=== PATIENT | male | born 1955 | race Caucasian/White ===

== ENCOUNTER 2022-09-23 10:13 | Inpatient (IN) | payer OTHER, MEDICARE ==
[~2022-09-23] VITALS: Ht 175 cm; Wt 79.0 kg
--- NOTE | 2022-09-23 11:10 | PM&R Post Admission Assessment ---
PM&R HP Date of Visit: Sep 23, 2022 Time of Visit: 12:15 History of Present Illness CC: Debility post Left pubic fracture & sacral fracture HPI: Patient is a 67 year old male with past medical history of HTN, mitral valve prolapse, and Afib who was recently admitted to [facility] from 09/21- 09/23 after a fall from home on 09/19 caused fractures of his left inferior pubis, left superior ramus, and a left impacted sacral fracture. He had been using meth at the time and fell from a countertop. During his stay at [facility] he was seen by ortho who recommended weight bearing as tolerated and PT/OT. No surgeries were performed. He currently reports 9/10 pain of his left pelvis and sacral regions lying in bed. He reports being comfortable otherwise. Med: Home Meds Active Reported Verapamil Sr (Verapamil HCl) 180 Mg Cap24h.pel 180 Mg PO DAILY Triamterene-Hctz 75-50 mg Tab (Triamterene/Hydrochlorothiazid) 75 Mg-50 Mg Tablet 0.5 Each PO DAILY Ibuprofen 600 Mg Tablet 600 Mg PO Q6H PRN Nicotine Patch (Nicotine) 21 Mg/24 Hour Patch.td24 21 Mg TD DAILY Naloxone HCl 4 Mg/Actuation [place] 1 [place] NS UD PRN ADMINISTER 1 SPRAY IN 1 MOSTRIL 1 TIME, MAY REPEAT IN ALTERNATING NOSTRILS EVERY 2-3 MINUTES UNTIL RESPONSIVE OR EMS ARRIVES Morphine Sulfate IR Tablet (Morphine Sulfate) 15 Mg Tablet 15 Mg PO Q6H PRN MDD 60MG Aspirin 81 Mg Tab.chew 81 Mg PO DAILY All: Iodine contrast media, penicillin, hydrocodone, hydroxyzine, ibuprofen, lisinopril, oxycodone, tramadol PMH: HTN, mitral valve prolapse, afib PSH: orthopedic repairs of left ankle FH: Mother (heart disease) SH:former smoker, current tobaco chewer, occasional alcohol use, Meth use for past 5 months. ROS: (+) Left pubic/hip/sacral pain. (-) LH, dizziness, CP, palpitations, SOB, cough, abd pain, N/V/D, pain in arms or legs. O Temp: 37.2 Pulse: 81 RR: 14 BP 122/75 Pulse Ox: 97 RA General: A/O x 3, No acute distress, fidgety and frequently clamping teeth together HEENT: PERRLA, EOMI Neck: Supple, no thyromegally Lungs: Clear to auscultation bilaterally, no wheezes, rhales, or rhonchi Heart: RRR, no murmurs appreciated on exam Abd: Soft, nontender, nondistended. Normoactive bowel sounds. Extremeties: good motor strength UE and right LE. Decreased strength LLE due to pain Skin: Some bruising in left inguinal region Neuro: Normal speech, no confusion, normal sensation Psych/Mental Status: Normal mood A Fracture of left Superior & inferior pubic ramus Left impacted sacral fracture HTN Hx Mitral valve prolapse Hx afib P PT/OT for rehabilitation Continue home medications Patient reports hx of afib although not in paperwork received. He is in sinus rhythm at this time and only taking aspirin. Monitor for signs of withdrawal DVT proph: lovenox Diet: as tolerated BRENNON CUEVAS Sep 23, 2022 14:54 Past Crmrjbe-Zqofdb-Dbnqpr Hx Past Med/Social Hx: Reviewed Nursing Past Med/Soc Hx, Reviewed and Corrections made Patient Social History Marrital Status: single Employed/Student: retired Alcohol Use: Occasionally Uses Smoking Status: Current Everyday Smoker Past Medical History Cardiac: Atrial Fibrillation, Valvular Heart Disease PM&R Allergy/Meds/Data Review Allergies Coded Allergies: Iodinated Contrast Media (Verified Allergy, Unknown, 09/23/22) Penicillins (Verified Allergy, Unknown, 09/23/22) hydrocodone (Verified Allergy, Unknown, 09/23/22) hydroxyzine (Verified Allergy, Unknown, 09/23/22) ibuprofen (Verified Allergy, Unknown, 09/23/22) lisinopril (Verified Allergy, Unknown, 09/23/22) oxycodone (Verified Allergy, Unknown, 09/23/22) tramadol (Verified Allergy, Unknown, 09/23/22) Home Medications Scheduled Aspirin (Aspirin), 81 MG PO DAILY, (Reported) Nicotine (Nicotine Patch), 21 MG TD DAILY, (Reported) Triamterene/Hydrochlorothiazid (Triamterene-Hctz 75-50 mg Tab), 0.5 EACH PO DAILY, (Reported) Verapamil HCl (Verapamil Sr), 180 MG PO DAILY, (Reported) Scheduled PRN Ibuprofen (Ibuprofen), 600 MG PO Q6H PRN for PAIN-MILD, (Reported) Morphine Sulfate (Morphine Sulfate IR Tablet), 15 MG PO Q6H PRN for PAIN-SEVERE (8-10), (Reported) Naloxone HCl (Naloxone HCl), 1 SPRAY NS UD PRN for OVERDOSE, (Reported) Current Medications Current Medications Reviewed Review of Systems Constitutional: see HPI, malaise, weakness EENTM: no symptoms reported Respiratory: no symptoms reported Cardiovascular: no symptoms reported Gastrointestinal: constipation Genitourinary: no symptoms reported Musculoskeletal: back pain, joint pain, muscle pain, muscle stiffness Skin: no symptoms reported Psychiatric/Neurological: Anxiety, Depressed All Other Systems Reviewed Negative Unless Noted: Yes Physical Exam Physical Exam Vital Signs Capillary Refill : Height, Weight, BMI Height: '" Weight: lbs. oz. kg; BMI Method: General Appearance: No Apparent Distress, WD/WN Eyes: Bilateral Eye Normal Inspection, Bilateral Eye PERRL HEENT: PERRL/EOMI, Normal ENT Inspection, Pharynx Normal Neck: Full Range of Motion, Normal Inspection, Non Tender, Supple, Carotid Bruit Respiratory: Chest Non Tender, Lungs Clear, Normal Breath Sounds, No Accessory Muscle Use, No Respiratory Distress Cardiovascular: Regular Rate, Rhythm, No Edema, No Gallop, No JVD, No Murmur, Normal Peripheral Pulses Gastrointestinal: Normal Bowel Sounds, No Organomegaly, No Pulsatile Mass, Non Tender, Soft Back: Normal Inspection, No CVA Tenderness, Decreased Range of Motion Extremity: Normal Capillary Refill, Normal Inspection, Non Tender, No Calf Tenderness, No Pedal Edema, Other (decreased LE due to pelvic pain) Neurologic/Psychiatric: Alert, Oriented x3, No Motor/Sensory Deficits, Normal Mood/Affect Skin: Normal Color, Warm/Dry Lymphatic: No Adenopathy PM&R Medical Assessment & Plan REHAB/MEDICAL ASSESSMENT AND PLAN: REHAB IMPAIRMENT GROUP: Pelvic fracture: left superior inferior pubic rami and left impacted sacral fracture ETIOLOGIC DIAGNOSIS: Pelvic fracture: left superior inferior pubic rami and left impacted sacral fracture The comorbidities that impact the patients function and/or functional outcome by: meth use, multiple pain med allergies, anxiety REHAB PLAN: The patient is being admitted to our comprehensive inpatient rehabilitation f acility and can tolerate the intensity of service consisting of at least: 180 minutes of therapy a day, 5 out of 7 days a week Rehab treatment will consist of: PT OT will focus on regaining function with use of AD in order to increase ambulatory stamina and improve ADL independence The patient/family has a good understanding of our discharge process and will benefit from an interdisciplinary inpatient rehabilitation program. The patient has potential to make improvement and is in need of at least two of the following multidisciplinary therapies including but not limited to physical, occupational, speech, and prosthetics and orthotics. Additionally the patient will need services from respiratory, nutritional services, wound care, psychology, etc. (Customize this to each patient). Given the patients complex condition and risk of further medical complications, rehabilitation services cannot be safely or effectively provided at a lower level of care such as a half-way facility. BARRIERS TO DISCHARGE: DALE ESTIMATED LOS: 7 days DISPOSITION: Home RELEVANT CHANGES SINCE PREADMISSION SCREENING: I have compared the patients medical and functional status at the time of the preadmission screening and there are: no changes PROGNOSIS: Fair REHABILITATION GOALS: 1. PT OT will focus on regaining function with use of AD in order to increase ambulatory stamina and improve ADL independence All the above goals were reviewed with the patient and he/she is in agreement. By signing this document, I acknowledge that I have personally performed a full physical examination on this patient within 24 hours of admission to this inpatient rehabilitation facility and have determined the patient to be able to tolerate the above course of treatment at an intensive level for a reasonable period of time. I will be completing a detailed individualized Plan of Care for this patient by day #4 of the patients stay based upon the Preadmission Screen, the Post-Admission Evaluation, and the therapy evaluations. Admission Dx/Comorbidities: (1) Pelvic fracture ICD Codes: S32.9XXA - Fracture of unspecified parts of lumbosacral spine and pelvis, initial encounter for closed fracture Assessment/Plan Assessment and Plan Assess & Plan/Chief Complaint Assessment: Fracture of left Superior & inferior pubic ramus Left impacted sacral fracture HTN Hx Mitral valve prolapse Hx afib Multiple pain med allergies Constipation Plan: Pain control PT OT Home meds Constipation treatment TYREL FREIRE DO Sep 23, 2022 11:10
[2022-09-23] MEDS ORDERED: FLEET ENEMA ADULT 1 EA BTL PR PRN (11:15)
[2022-09-23] MEDS ORDERED: guaiFENesin/CODEINE (ROBITUSSIN AC) 10ML UDC PO PRN (11:15)
[2022-09-23] MEDS ORDERED: diphenhydrAMINE 25 MG TAB (BENADRYL) PO PRN (11:15)
[2022-09-23] MEDS ORDERED: MELATONIN 3 MG TABLET PO PRN (11:15)
[2022-09-23] MEDS ORDERED: BISACODYL 10 MG SUPP (DULCOLAX) PR PRN (11:15)
[2022-09-23] MEDS ORDERED: DOCUSATE SODIUM 100 MG (COLACE) CAP PO PRN (11:15)
[2022-09-23] MEDS ORDERED: ONDANSETRON 4 MG (ZOFRAN) ORAL DISSOLVE TAB PO PRN (11:15)
[2022-09-23] MEDS ORDERED: LOPERAMIDE 2 MG (IMODIUM) TABLET PO PRN (11:15)
[2022-09-23] MEDS ORDERED: CALCIUM CARBONATE 500 MG (TUMS) TAB.CHEW PO PRN (11:15)
[2022-09-23] MEDS ORDERED: MORP15TA PO (12:18)
[2022-09-23] MEDS ORDERED: NALO4SPR3 NS (12:18)
[2022-09-23] MEDS ORDERED: ASPI-999 PO (12:18)
[2022-09-23] MEDS ORDERED: VERA180C4 PO (12:18)
[2022-09-23] MEDS ORDERED: TRIA1TAB5 PO (12:18)
[2022-09-23] MEDS ORDERED: NICO-685 TD (12:18)
[2022-09-23] MEDS ORDERED: IBUP-1773 PO (12:18)
--- NOTE | 2022-09-23 12:53 | Occupational Therapy Eval ---
OT Evaluation-General/PLF Medical Diagnosis Admission Date Sep 23, 2022 at 11:55 Medical Diagnosis: pelvis and sacral fx Onset Date: Sep 19, 2022 Therapy Diagnosis Therapy Diagnosis: decreased ADL status, pain Weight Bear Status Weight Bearing Restriction: Weight Bearing/Tolerated Location Restriction: LE Bilateral Referral Physician: Arslan Quiroz Reason: Evaluation/Treatment Medical History Additional Medical History HTN, mitral valve prolapse, afib, illicit drug use (meth), L ankle surgery x3 Current History fall 09/19 after climbing on countertop. ED 09/21 due to continued pain. L superior and inferior pubic rami and sacral fractures. Pt transferred to ARU 09/23/22 Social History Home: Apartment (2nd floor apartment) Current Living Status: Alone Steps Into Home: 6 (without rail) Steps Inside Home: 11 (with rail) Pt reports 6 steps into apartment complex initially. Once inside he has 2 more flights to get to his apartment (1 small flight and a regular flight). ADL-Prior Level of Function SCALE: Activities may be completed with or without assistive devices. 4-Wowmzlnexs-tqfkiwi completes the activity by him/herself with no assistance from a helper. 5-Set-up or Clean-up Assistance-helper sets up or cleans up; patient completes activity. [place] assists only prior to or following the activity. 4-Supervision or Touching Assistance-helper provides verbal cues and/or touching/steadying and/or contact guard assistance as patient completes activity. Assistance may be provided throughout the activity or intermittently. 3-Partial/Moderate Assistance-helper does LESS THAN HALF the effort. [place] lifts, holds or supports trunk or limbs, but provides less than half the effort. 2-Substantial/Maximal Assistance-helper does MORE THAN HALF the effort. [place] lifts or holds trunk or limbs and provides more than half the effort. 0-Eugyusqqv-bvyyqj does ALL the effort. Patient does none of the effort to complete the activity. Or, the assistance of 2 or more helpers is required for the patient to complete the activity. If activity was not attempted, code reason: 7-Patient Refused. 9-Not Applicable-not attempted and the patient did not perform the activity before the current illness, exacerbation or injury. 10-Not Attempted due to Environmental Limitations-(lack of equipment, weather restraints, etc.). 88-Not Attempted due to Medical Conditions or Safety Concerns. ADL PLOF Comments Uses a plastic lawn chair as a walker within his home since his fall. He did not use any AD prior to fall. His mattress is on the floor, no bed stand. Pt was independent with I/ADLs prior to fall. He was not driving, he used transportation or walked where he needed. Self Care: Independent Functional Cognition: Independent DME/Equipment: Tub/Shower Drive Self: No OT Current Status Subjective L shoulder pain 7-8/10 with use, 8/10 pelvis at rest and 10+/10 with mo vement/activity. Mental Status/Objective Patient Orientation: Person, Place, Time, Situation Current Glasses/Contacts: No Hand Dominance: Left Upper Extremity ROM Decreased LUE shoulder flexion (prior rotator cuff injury). WFL at elbow/wrist/hand RUE WFL. Upper Extremity Coordination WFL Upper Extremity Sensation WFL Upper Extremity Strength RUE grossly 4/5, LUE grossly 3/5 ADL-Treatment Eating (QC): 6 Oral Hygiene (QC): 4 (SBA standing at sink.) Shower/Bathe Self (QC): 4 (CGA) Upper Body Dressing (QC): 5 Lower Body Dressing (QC): 4 (CGA) On/Off Footwear (QC): 4 (SBA) Toileting Hygiene (QC): 4 (CGA) Other Treatments OT evaluation complete. Pt's lunch arrived, pt able to eat independently, c/o pain in L shoulder occasionally with movement. OT/PT cotreat due to skill of 2 clinicians required which a coordinator of rehabilitation services could not perform in order to coordinate UE/LEs, decrease fall risk, and due to pt's limitations in strength, transfers/mobility, and pain with activity. OT focused on UE placement, cues for sequencing and safety, and ADLS, PT focused on LE placement, gross overall movement, transfers and mobility. Pt transferred supine to sit EOB, donned footwear with close SBA. Pt stood at sink for oral care, SBA. Pt declined other ADLS at this time, as he had completed at OSH prior to admission [facility]. QC scores based on pt's report and performance during therapy session. Pt used FWW to perform functional mobility/transfers including car transfers, mobility using FWW (even and uneven surface), bed mobility, stairs, and balance assessments. Pt took rest breaks as needed. Please refer to PT evaluation for QC scores associated with mobility/transfers, and for scores associated with balance assessments. Pt returned to room, transferring to bed. Pt positioned to comfort on R side using pillow between knees and behind his back. Post tx, pt in bed, call light in reach and all needs met. Education OT Patient Education: Correct positioning, Energy conservation, Modified ADL techniques, Progress toward Goal/Update tx plan, Purpose of tx/functional activities, Rehab process Teaching Recipient: Patient Teaching Methods: Discussion Response to Teaching: Verbalize Understanding BIMS CAM BIMS Expression of Ideas and Wants: Without Difficulty Understanding Verbal Content: Understands Brief Interview/Mental Status: Yes IRF [place] BIMS: IRF [place] BIMS Response (Comments) Value Repitition of Three Words Three 3 Recalls Socks Yes, No Cue Required 2 Recalls Blue Yes, No Cue Required 2 Recalls Bed No, Could Not Recall 0 Year Correct 3 Month Accurate Within 5 Days 2 Day Correct 1 Total 13 Should Staff Asses. Mental St.: No CAM Mental Status Change/Baseline: 0 Inattention: 0 Disorganized thinkin Altered level of consciousness: 0 OT Short Term Goals Short Term Goals Time Frame: Oct 01, 2022 Shower/bathe self: 5 Upper body dressin Lower body dressin Putting on/taking off footwear: 5 OT Skilled Nursing Goals Handle Lathe Operator Goals Time Frame: Oct 15, 2022 Eating (QC): 6 Oral Hygiene (QC): 6 Toileting Hygiene (QC): 6 Shower/Bathe Self (QC): 6 Upper Body Dressing (QC): 6 Lower Body Dressing (QC): 6 On/Off Footwear (QC): 6 Additional Goals: 1-Demonstrate ADL Tasks, 2-Verbalize Understanding, 3- ImproveStrength/Sivan 1=Demonstrate adherence to instructed precautions during ADL tasks. 2=Patient will verbalize/demonstrate understanding of assistive devices/modifications for ADL. 3=Patient will improve strength/tolerance for activity to enable patient to perform ADL's. OT Education/Plan Problem List/Assessment Assessment: Decreased Activ Tolerance, Decreased UE Strength, Impaired Funct Balance, Impaired I ADL's, Impaired Self-Care Skills Discharge Recommendations Plan/Recommendations: Continue POC Treatment Plan/Plan of Care Patient would benefit from OT for education, treatment and training to promote independence in ADL's, mobility, safety and/or upper extremity function for ADL's. Plan of Care: ADL Retraining, Functional Mobility, Group Exercise/Act as Ind, UE Funct Exercise/Act Treatment Duration: Oct 15, 2022 Frequency: At least 5 of 7 days/Wk (IRF) Estimated Hrs Per Day: 1.5 hours per day Agreement: Yes Rehab Potential: Good Time Start Time: 12:40 Stop Time: 14:20 DATE: Sep 23, 2022 Total Time Billed (hr/min): 90 Billed Treatment Time [id number] OT eval/tx (28'), [id number] Cotreat (62') 1, EVM (10'), ADL 2 (30'), FA 3 (50') HERMINIO DE JESUS OT Sep 23, 2022 12:53
[2022-09-23] MEDS ORDERED: LACTULOSE SYRUP 10GM/15ML (ENULOSE) 30ML UDC PO NR (13:30)
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
[2022-09-23 14:19] VITALS: BP 122/75
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
[2022-09-23] MEDS: morphine IMMEDIATE RELEASE 15 MG TABLET PO PRN (16:10)
--- NOTE | 2022-09-23 16:23 | Physical Therapy Daily Note ---
PT Daily Note-Current Subjective Patient rating pain in (L) groin as 10/10+. Is angry and agitated that he is still hurting - is not physically aggressive, but exceptionally agitated. Reminded patient that he denied needing pain medication at admission and advised patient that we can ask nursing for pain medications to help control pain. He states he is hesitant due to no BM. Discussed that patient's 10+/10 pain will not allow for good participation in therapy. Suggest trial of IFC/TENS at low back/sacrum to see if it provides any pain relief. Patient agreeable to try IFC. Did calm down and was not agitated at the end of the session. Pain Section J - Health Conditions 1. Rarely or not at all 2. Occasionally 3. Frequently 4. Almost constantly 8. Unable to answer Pain Effect on Sleep: 3 (has to be in partial (R) sidelying or on back to sleep) Pain Interference with Therapy: 4 Pain Interference w/Day-to-Day: 4 Transfers SCALE: Activities may be completed with or without assistive devices. 6-Pfrwtnojiz-kfozveq completes the activity by him/herself with no assistance from a helper. 5-Set-up or Clean-up Assistance-helper sets up or cleans up; patient completes activity. [place] assists only prior to or following the activity. 4-Supervision or Touching Assistance-helper provides verbal cues and/or touching/steadying and/or contact guard assistance as patient completes activity. Assistance may be provided throughout the activity or intermittently. 3-Partial/Moderate Assistance-helper does LESS THAN HALF the effort. [place] lifts, holds or supports trunk or limbs, but provides less than half the effort. 2-Substantial/Maximal Assistance-helper does MORE THAN HALF the effort. [place] lifts or holds trunk or limbs and provides more than half the effort. 5-Wcvktbcik-hjtszr does ALL the effort. Patient does none of the effort to complete the activity. Or, the assistance of 2 or more helpers is required for the patient to complete the activity. If activity was not attempted, code reason: 7-Patient Refused. 9-Not Applicable-not attempted and the patient did not perform the activity before the current illness, exacerbation or injury. 10-Not Attempted due to Environmental Limitations-(lack of equipment, weather restraints, etc.). 88-Not Attempted due to Medical Conditions or Safety Concerns. Lying to Sitting/Side of Bed(Q: 3 (Min (A) but yelled out in pain. Stated "I don't care who hears". Explained to patient that we do not want him to hurt and suggested medication for pain management, as his last dose was over 5 hours ago.) Sit to Stand (QC): 4 (CGA sit<>stand following TENS placement) Weight Bearing Weight Bearing/Tolerated Weight Bearing/Tolerated Gait Training Distance: Kya ambulated 150' with FWW with TENS in place, CGA, improved steps Treatments IFC-estim (quadripolar placement) surround low back/sacrum. level 4 (to patient tolerance). Patient stated it felt like a massage. Assessment Current Status: Fair Progress No pain increase with TENS. Explained that TENS will be removed at conclusion of this session. Will reapply for tomorrow's treatment to provide pain relief with therapy tasks. With patient's impulsivity/anger issues when hurting, do not believe it is safe to leave IFC in with patient unattended. PT Residential Goals Sales And Business Development Manager Goals PT Sales And Business Development Manager Goals Time Frame: Oct 14, 2022 Roll Left & Right (QC): 6 Sit to Lying (QC): 6 Lying-Sitting on Side/Bed(QC): 6 Sit to Stand (QC): 6 Chair/Jrc-ih-Cfhek Xfer(QC): 6 (with FWW) Toilet Transfer (QC): 6 Car Transfer (QC): 5 Does the Patient Walk: Yes Walk 10 feet (QC): 6 (with FWW) Walk 50ft with 2 Turns (QC): 6 (with FWW) Walk 150 ft (QC): 6 (with FWW) Walking 10ft on Uneven Surface: 6 (with FWW) 1 Step (curb) (QC): 6 (with FWW) 4 Steps (QC): 6 (with (B) rails) 12 Steps (QC): 5 (with (B) rails) Picking up an Object (QC): 6 (with c4 planner) Does the Pt use WC or Scooter?: No Wheel 50 feet with 2 turns (QC: 9 Type: N/A Wheel 150 feet: 9 Type: N/A PT Plan Treatment/Plan Treatment Plan: Continue Plan of Care Treatment Plan: Bed Mobility, Education, Functional Activity Sivan, Functional Strength, Group Therapy, Gait, Safety, Therapeutic Exercise, Transfers, Other (IFC/TENS prn) Treatment Duration: Oct 14, 2022 Frequency: At least 5 of 7 days/Wk (IRF) Estimated Hrs Per Day: 1.5 hours per day Patient and/or Family Agrees t: Yes Time Time In: 1545 Time Out: 1614 DATE: Sep 23, 2022 Total Billed Treatment Time: 29 Total Billed Treatment 29' on individual therapy, ES 14, Gait 15' Silvina Marcano PT Sep 23, 2022 16:23
[2022-09-23] MEDS ORDERED: VERAPAMIL SR 180 MG (CALAN SR) TAB PO SCH (18:00)
[2022-09-23] MEDS: VERAPAMIL SR 180 MG (CALAN SR) TAB PO SCH (18:24)
[2022-09-23] MEDS: ENOXAPARIN 40 MG/0.4 ML (LOVENOX) SYR SC SCH (18:43)
[2022-09-23 19:47] VITALS: BP 124/74
[2022-09-23] MEDS: SENNA W/DOCUSATE (SENOKOT S) TABLET PO SCH (20:13)
[2022-09-23] MEDS: morphine ER 30 MG (MS CONTIN) TAB PO SCH (20:13)
[2022-09-23] MEDS ORDERED: diphenhydrAMINE 25 MG TAB (BENADRYL) PO ONE (20:13)
[2022-09-23] MEDS: DOCUSATE SODIUM 100 MG (COLACE) CAP PO SCH (20:14)
[2022-09-23] MEDS ORDERED: NICOTINE 21 MG (NICODERM) PATCH ONE (20:15)
[2022-09-23] MEDS: polyethylene glycoL POWDER 17 GM (MIRALAX) PACK PO SCH (20:17)
[2022-09-23] MEDS: NICOTINE 21 MG (NICODERM) PATCH TD SCH (20:19)
[2022-09-24 06:02] LABS: BASOPHILS # (AUTO) 0.1 10^3/uL (0.0-0.1); BASOPHILS % (AUTO) 1 % (0-10); EOSINOPHILS # (AUTO) 0.4 10^3/uL (0.0-0.3); EOSINOPHILS % (AUTO) 7 % (0-10); HEMATOCRIT 35 % (40-54); HEMOGLOBIN 11.8 g/dL (13.3-17.7); LYMPHOCYTES % (AUTO) 37 % (12-44); MEAN CORPUSCULAR HEMOGLOBIN 32 pg (25-34); MEAN CORPUSCULAR HGB CONC 34 g/dL (32-36); MEAN CORPUSCULAR VOLUME 95 fL (80-99); MEAN PLATELET VOLUME 8.9 fL (9.0-12.2); MONOCYTES # (AUTO) 0.6 10^3/uL (0.0-1.0); MONOCYTES % (AUTO) 11 % (0-12); NEUTROPHILS # (AUTO) 2.4 10^3/uL (1.8-7.8); NEUTROPHILS % (AUTO) 45 % (42-75); PLATELET COUNT 244 10^3/uL (130-400); WHITE BLOOD COUNT 5.4 10^3/uL (4.3-11.0)
[2022-09-24 06:18] LABS: ALBUMIN 3.1 GM/DL (3.2-4.5); BILIRUBIN,TOTAL 0.6 MG/DL (0.1-1.0); CALCIUM 8.6 MG/DL (8.5-10.1); CREATININE SERUM 0.77 MG/DL (0.60-1.30); POTASSIUM 3.9 MMOL/L (3.6-5.0); TOTAL PROTEIN 5.8 GM/DL (6.4-8.2)
[2022-09-24] MEDS ORDERED: VERAPAMIL SR 180 MG (CALAN SR) TAB PO SCH (07:00)
[2022-09-24] MEDS: VERAPAMIL SR 180 MG (CALAN SR) TAB PO SCH ×2 (07:36→17:57)
[2022-09-24] MEDS: ASPIRIN 81 MG CHEW (CHILDREN'S ASA) PO SCH (07:36)
[2022-09-24] MEDS: morphine ER 30 MG (MS CONTIN) TAB PO SCH ×2 (07:37→20:41)
[2022-09-24] MEDS: SENNA W/DOCUSATE (SENOKOT S) TABLET PO SCH ×2 (07:38→20:50)
[2022-09-24] MEDS: DOCUSATE SODIUM 100 MG (COLACE) CAP PO SCH ×2 (07:38→20:50)
[2022-09-24] MEDS: NICOTINE 21 MG (NICODERM) PATCH TD SCH (07:41)
[2022-09-24 07:57] VITALS: BP 122/64
[2022-09-24] MEDS: LACTULOSE SYRUP 10GM/15ML (ENULOSE) 30ML UDC PO PRN (08:06)
--- NOTE | 2022-09-24 08:11 | PM&R Progress Note ---
Subjective HPI/CC On Admission Date Seen by Provider: Sep 24, 2022 Time Seen by Provider: 11:30 Subjective/Events-last exam 09/24/2022: Much improved Pain improved Asked about Dilaudid and I explained that is only for post op pain and MS Pop was added to help him with his pain No issues Review of Systems General: Fatigue, Malaise Objective Exam Vital Signs Vital Signs Date Time Temp Pulse Resp B/P (MAP) Pulse Ox O2 Delivery O2 Flow Rate FiO2 09/24/22 20:30 100 Room Air 09/24/22 19:48 36.5 63 16 124/77 (93) Capillary Refill : General Appearance: No Apparent Distress, WD/WN HEENT: PERRL/EOMI, Normal ENT Inspection, Pharynx Normal Neck: Full Range of Motion, Normal Inspection, Non Tender, Supple, Carotid Bruit Respiratory: Chest Non Tender, Lungs Clear, Normal Breath Sounds, No Accessory Muscle Use, No Respiratory Distress Cardiovascular: Regular Rate, Rhythm, No Edema, No Gallop, No JVD, No Murmur, Normal Peripheral Pulses Gastrointestinal: Normal Bowel Sounds, No Organomegaly, No Pulsatile Mass, Non Tender, Soft Back: Normal Inspection, No CVA Tenderness, Decreased Range of Motion Extremity: Normal Capillary Refill, Normal Inspection, Non Tender, No Calf Tenderness, No Pedal Edema, Other (decreased LE due to pelvic pain) Neurologic/Psychiatric: Alert, Oriented x3, No Motor/Sensory Deficits, Normal Mood/Affect Skin: Normal Color, Warm/Dry Lymphatic: No Adenopathy Results/Procedures Lab Patient resulted labs reviewed. FIM Transfers Therapy Code Descriptions/Definitions Functional [place] Measure: 0=Not Assessed/NA 4=Minimal Assistance 1=Total Assistance 5=Supervision or Setup 2=Maximal Assistance 6=Modified [place] 3=Moderate Assistance 7=Complete IndependenceSCALE: Activities may be completed with or without assistive devices. 2-Bmmrrvvqim-hzolgzb completes the activity by him/herself with no assistance from a helper. 5-Set-up or Clean-up Assistance-helper sets up or cleans up; patient completes activity. [place] assists only prior to or following the activity. 4-Supervision or Touching Assistance-helper provides verbal cues and/or touchi ng/steadying and/or contact guard assistance as patient completes activity. Assistance may be provided throughout the activity or intermittently. 3-Partial/Moderate Assistance-helper does LESS THAN HALF the effort. [place] lifts, holds or supports trunk or limbs, but provides less than half the effort. 2-Substantial/Maximal Assistance-helper does MORE THAN HALF the effort. [place] lifts or holds trunk or limbs and provides more than half the effort. 3-Mfgcozwnl-cujpyu does ALL the effort. Patient does none of the effort to complete the activity. Or, the assistance of 2 or more helpers is required for the patient to complete the activity. If activity was not attempted, code reason: 7-Patient Refused. 9-Not Applicable-not attempted and the patient did not perform the activity before the current illness, exacerbation or injury. 10-Not Attempted due to Environmental Limitations-(lack of equipment, weather restraints, etc.). 88-Not Attempted due to Medical Conditions or Safety Concerns. Roll Left to Right (QC): 4 (set-up and cues for bedrail due to pain) Sit to Lying (QC): 3 (min (A) with LE's due to pain) Sit to Stand (QC): 4 (CGA sit<>stand following TENS placement) Chair/Pps-wt-Qvirk Xfer(QC): 3 (Min-CGA with FWW) Car Transfer (QC): 3 (Min (A) to lift LE's into car- painful transition.) Gait Training Does the Patient Walk?: Yes Distance: Kya ambulated 150' with FWW with TENS in place, CGA, improved steps Walk 10 feet (QC): 3 (min (A) with FWW) Walk 50 ft with 2 Turns(QC): 3 (min (A) with FWW) Walk 150 ft (QC): 3 (min (A) with FWW) Walking 10ft/uneven surface-QC: 3 (min (A) with FWW and cues for walker placement) Gait Assistive Device: FWW Wheelchair Training Does the Pt Use a Wheelchair?: No Wheel 50 ft with 2 turns (QC): 9 Wheel 150 ft (QC): 9 Stair Training 1 Step (curb) (QC): 3 (min (A) with FWW) 4 Steps (QC): 3 (min (A) (B) rails with max cues for stepping sequence, step to pattern. Increased pain with this activity.) 12 Steps (QC): 88 (not safe due to increased pain with 4 steps) Balance Picking up an Object (QC): 6 (with tree warden. Unableto pick pen up floor without tree warden - reaching down/forward caused increased pelvis pain.) ADL-Treatment Eating (QC): 6 Oral Hygiene (QC): 4 (SBA standing at sink.) Shower/Bathe Self (QC): 4 (CGA) Upper Body Dressing (QC): 5 Lower Body Dressing (QC): 4 (CGA) On/Off Footwear (QC): 4 (SBA) Toileting Hygiene (QC): 4 (CGA) Assessment/Plan Assessment and Plan Assess & Plan/Chief Complaint Assessment: Fracture of left Superior & inferior pubic ramus Left impacted sacral fracture HTN Hx Mitral valve prolapse Hx afib Multiple pain med allergies Constipation Plan: Pain control PT OT Home meds Constipation treatment 09/24/2022: BM+ Pain control (1) Pelvic fracture TYREL FREIRE DO Sep 24, 2022 08:11
--- NOTE | 2022-09-24 08:11 | Individualized Plan of Care ---
Individualized Plan of Care Rehab Nursing IPOC Order Admission Date Sep 23, 2022 at 11:55 Current Orders Orders Admission Order(Inpt,Obs,Sdc) (09/23/22 11:06) Vital Signs: Per Unit Policy ( 08,16,00 (09/23/22 11:06) Franky Kessler 09,21 (09/23/22 11:06) Sequential Compression Device (09/23/22 11:06) Assembly Manager-Inpt Rehab Con (09/23/22 11:06) Rehab Nursing Orders-Ipoc (09/23/22 11:06) Physical Therapy Rehab Orders (09/23/22 11:06) Occupational Therapy Rehab Ord (09/23/22 11:06) Speech Therapy Rehab Orders (09/23/22 11:06) Cbc With Automated Diff (09/24/22 06:00) Comprehensive Metabolic Panel (09/24/22 06:00) Precautions (Aru) (09/23/22 11:06) Weekly Weight WEEK (09/23/22 11:06) Rehab-Intensity Of Therapy (09/23/22 11:06) Initiate Admission Nursing Pro .admission (09/23/22 11:06) Alprazolam Tablet (Xanax Tablet) (09/23/22 11:15) Calcium Carbonate Chew Tablet (Antacid C (09/23/22 11:15) Diphenhydramine Tablet (Benadryl Tablet) (09/23/22 11:15) Docusate Sodium Capsule (Colace Capsule) (09/23/22 21:00) Docusate Sodium Capsule (Colace Capsule) (09/23/22 11:15) Bisacodyl Suppository (Dulcolax Supposit (09/23/22 11:15) Lactulose Oral Solution (Enulose Oral So (09/23/22 11:15) Na Phos/Na Biphos Enema (Fleet Enema Zafar (09/23/22 11:15) Guaifenesin/Codeine Syrup (Robitussin Ac (09/23/22 11:15) Loperamide Tablet (Imodium Tablet) (09/23/22 11:15) Melatonin Tablet (Melatonin Tablet) (09/23/22 11:15) Polyethylene Glycol Powder Pkt (Miralax (09/23/22 21:00) Ondansetron Oral Dissolve Tab (Zofran (09/23/22 11:15) Senna S Tablet (Senokot S Tablet) (09/23/22 21:00) Acetaminophen Tablet/Caplet (Tylenol T (09/23/22 11:15) Initiate Admission Nursing Pro .admission (09/23/22 11:06) Admission Arrival Bed Request (09/23/22 11:55) General/Regular (09/23/22 Lunch) Aspirin Chewable Tablet (Baby Aspirin Ch (09/24/22 09:00) Morphine Immediate Release Tab (Morphine (09/23/22 12:45) Nicotine Patch (Nicoderm Patch) (09/24/22 09:00) Triamterene/Hctz 75-50 Tablet (Maxzide 7 (09/24/22 09:00) (Nf) Verapamil Hcl (Verapamil Sr) (09/24/22 09:00) Lactulose Oral Solution (Enulose Oral So (09/23/22 13:30) Morphine Er Tablet (Ms Contin Tablet) (09/23/22 21:00) Patch Removal (Patch Removal) (09/24/22 08:59) Verapamil Sr Tablet (Isoptin Sr Tablet) (09/24/22 07:00) Verapamil Sr Tablet (Isoptin Sr Tablet) (09/23/22 18:00) Enoxaparin Injection (Lovenox Injection) (09/23/22 18:00) Verapamil Sr Tablet (Isoptin Sr Tablet) (09/23/22 18:30) Diphenhydramine Tablet (Benadryl Tablet) (09/23/22 20:13) Nicotine Patch (Nicoderm Patch) (09/23/22 20:15) Patient Visit (09/23/22 ) Pt Eval Moderate Complexity (09/23/22 ) Gait Training, Ea 15 Min (09/23/22 ) Functional Activities, Ea 15 (09/23/22 ) E-Stim, Unattended Tx (09/23/22 ) Diphenhydramine Tablet (Benadryl Tablet) (09/24/22 08:15) Diphenhydramine Tablet (Benadryl Tablet) (09/24/22 08:46) Patient Visit (09/24/22 ) E-Stim, Unattended Tx (09/24/22 ) Gait Training, Ea 15 Min (09/24/22 ) Exercise Therap, Ea 15 Min (09/24/22 ) Rehab Nursing Orders: Ongoing Assess. of Function Status, Bladder Management, Bladder Scan, Bladder Training, Bowel Management, Bowel Training, Disease Management & Educaiton, DVT Prophylaxis, Fall Prevention, Fluid/Electrolyte/Nutrition Mgmt, Infection Prevention, Medication Management & Education, Management of Risks & Complications, Management of Skin Intergrity, Nutrition Management, Pain Management, Patient/Family Support, Safety Management Intensity of Therapy to be met Patient to be seen: Min.3h per day/5 of 7d PT IPOC Problem List: Activity Tolerance, Functional Strength, Safety, Balance, Gait, Transfer, Bed Mobility, Other (Pain) Treatment Plan: Continue Plan of Care Bed Mobility, Education, Functional Activity Sivan, Functional Strength, Group Therapy, Gait, Safety, Therapeutic Exercise, Transfers, Other (IFC/TENS prn) Treatment Duration: Oct 14, 2022 Frequency: At least 5 of 7 days/Wk (IRF) Estimated Hrs Per Day: 1.5 hours per day OT IPOC Problems: Decreased Activ Tolerance, Decreased UE Strength, Impaired Funct Balance, Impaired I ADL's, Impaired Self-Care Skills OT Treatment, Training and Edu: Yes Plan of Care: ADL Retraining, Functional Mobility, Group Exercise/Act as Ind, UE Funct Exercise/Act Treatment Duration: Oct 15, 2022 Frequency: At least 5 of 7 days/Wk (IRF) Estimated Hrs Per Day: 1.[address] IPOC Speech Therapy Treatment Plan: Discontinue ST Treatment Duration: Sep 24, 2022 Frequency: Modified Program (IRF) Estimated Hrs Per Day: Other Assembly Manager/Case Mgmt Assembly Manager/Case Managemen: Discharge Planning Dietitian/Personalized Living Manager Dietitian/Personalized Living Manager to monitor nutritional status and make changes and/or recommendations as needed and work with speech pathology on dietary upgrades as the occur. Physician IPOC Medical Issues being managed closely and that require the 24 hour availability of a physician: Recent pelvic fracture with use of meth and valvular heart disease will require close monitoring for decompensation Medical Issues: Bowel/Bladder Function, DVT Prophylaxis, Falls Precautions, Fluid/Electrolyte/Nutrition Balance, Infection Protection, Pain Management Brief Synthesis of Preadmission Screen, Post-Admission Evaluation, and Therapy Evaluations: PT OT will focus on regaining function with use of AD in order to gain stamina and ambulation skills in order to return home Medical Prognosis: Fair Anticipated Length of Stay: 7 days TYREL FREIRE DO Sep 24, 2022 08:11
[2022-09-24] MEDS ORDERED: diphenhydrAMINE 25 MG TAB (BENADRYL) PO ONE (08:46)
[2022-09-24] MEDS: diphenhydrAMINE 25 MG TAB (BENADRYL) PO PRN ×4 (08:48→20:41)
[2022-09-24] MEDS: NICOTINE PATCH REMOVAL TP SCH (08:51)
[2022-09-24] MEDS: polyethylene glycoL POWDER 17 GM (MIRALAX) PACK PO SCH ×3 (08:53→20:41)
[2022-09-24] MEDS ORDERED: TRIAMTERENE/HCTZ 75-50 (MAXZIDE,DYAZIDE) TABLET PO SCH (09:00)
[2022-09-24] MEDS ORDERED: VERAPAMIL HCL 180 MG PO SCH (09:00)
--- NOTE | 2022-09-24 09:54 | Speech Therapy Progress Note ---
Therapy Progress Note ST received a consultation for cognitive linguistic services. At this time, a skilled speech pathology need has not been identified through documentation or discussion. If speech pathology services are needed, please re-consult. Thank you for the consultation. KAVEH STALEY Sep 24, 2022 09:54
[2022-09-24] MEDS: ALPRAZolam 0.25 MG (XANAX) TAB PO PRN ×2 (09:58→20:41)
--- NOTE | 2022-09-24 11:02 | Occupational Ther Daily Note ---
OT Current Status-Daily Note Subjective Pt seen in room, up in bed, agreeable to OT. Pt reported discomfort in pelvis during supine to sit but did not rate pain. Complained only about itching and nursing was contacted. Appearance Alert, cooperative. Somewhat loud initially but quieted with time. ADL-Treatment Pt declined shower, stating that he had one yesterday before he was admitted and only showers every other day. Supine to sit EOB without assistance but uncomfortable for pt. Sit to stand with SBA, with bed elevated. Walked CGA, FWW to bathroom and stood SBA at sink to brush teeth. Declined toileting. Therapy Code Descriptions/Definitions Functional [place] Measure: 0=Not Assessed/NA 4=Minimal Assistance 1=Total Assistance 5=Supervision or Setup 2=Maximal Assistance 6=Modified [place] 3=Moderate Assistance 7=Complete IndependenceSCALE: Activities may be completed with or without assistive devices. 3-Hlcdkkfows-gfczcjx completes the activity by him/herself with no assistance from a helper. 5-Set-up or Clean-up Assistance-helper sets up or cleans up; patient completes activity. [place] assists only prior to or following the activity. 4-Supervision or Touching Assistance-helper provides verbal cues and/or touching/steadying and/or contact guard assistance as patient completes activity. Assistance may be provided throughout the activity or intermittently. 3-Partial/Moderate Assistance-helper does LESS THAN HALF the effort. [place] lifts, holds or supports trunk or limbs, but provides less than half the effort. 2-Substantial/Maximal Assistance-helper does MORE THAN HALF the effort. [place] lifts or holds trunk or limbs and provides more than half the effort. 1-Yfglsduzg-fsuaxb does ALL the effort. Patient does none of the effort to complete the activity. Or, the assistance of 2 or more helpers is required for the patient to complete the activity. If activity was not attempted, code reason: 7-Patient Refused. 9-Not Applicable-not attempted and the patient did not perform the activity before the current illness, exacerbation or injury. 10-Not Attempted due to Environmental Limitations-(lack of equipment, weather restraints, etc.). 88-Not Attempted due to Medical Conditions or Safety Concerns. Oral Hygiene (QC): 4 (SBA) Other Treatment Pt walked to therapy gym. Cues for hand placement for stand to sit in chair with arms. Pt completed 10 minutes bilat UE exercise on arm bike set at 15W resistance. To strengthen arms to help with transfers. He took many brief breaks and extra time. He reported that his L shoulder hurt with certain movements such as reaching but that it did not hurt while using the arm bike. Cues for hand placement for sit to stand and education on why to use UEs to assist with transfers. Walked CGA, FWW back to room and cues for and placement to sit EOB. Some discomfort getting legs into bed but he was able to do it without help. Pt left up in bed, 3 rails up, bed alarm on, all needs met. Education OT Patient Education: Progress toward Goal/Update tx plan, Purpose of tx/functional activities, Safety issues, Transfer techniques Teaching Recipient: Patient Teaching Methods: Demonstration, Discussion Response to Teaching: Verbalize Understanding, Reinforcement Needed OT Short Term Goals Short Term Goals Time Frame: Oct 01, 2022 Shower/bathe self: 5 Upper body dressin Lower body dressin Putting on/taking off footwear: 5 OT Senior Care Goals Senior Care Goals Time Frame: Oct 15, 2022 Acute change in mental status: 0 Inattention: 0 Disorganized thinkin Altered level of consciousness: 0 Eating (QC): 6 Oral Hygiene (QC): 6 Toileting Hygiene (QC): 6 Shower/Bathe Self (QC): 6 Upper Body Dressing (QC): 6 Lower Body Dressing (QC): 6 On/Off Footwear (QC): 6 Additional Goals: 1-Demonstrate ADL Tasks, 2-Verbalize Understanding, 3-ImproveStrength/Sivan 1=Demonstrate adherence to instructed precautions during ADL tasks. 2=Patient will verbalize/demonstrate understanding of assistive devices/modifications for ADL. 3=Patient will improve strength/tolerance for activity to enable patient to perform ADL's. OT Education/Plan Discharge Recommendations Plan/Recommendations: Continue POC Treatment Plan/Plan of Care Patient would benefit from OT for education, treatment and training to promote independence in ADL's, mobility, safety and/or upper extremity function for ADL's. Plan of Care: ADL Retraining, Functional Mobility, Group Exercise/Act as Ind, UE Funct Exercise/Act Treatment Duration: Oct 15, 2022 Frequency: At least 5 of 7 days/Wk (IRF) Estimated Hrs Per Day: 1.5 hours per day Agreement: Yes Rehab Potential: Good Time Start Time: 08:30 Stop Time: 09:30 DATE: Sep 24, 2022 Total Time Billed (hr/min): 60 Billed Treatment Time visit, ADL 10 minutes, exercise 50 minutes LUCRETIA VARELA OT Sep 24, 2022 11:02
[2022-09-24] MEDS: ACETAMINOPHEN 325 MG TABLET PO PRN (13:05)
--- NOTE | 2022-09-24 13:42 | Physical Therapy Daily Note ---
PT Daily Note-Current Subjective Pt found lying in bed upon entry. Agreed to PT. Rates pain 7/10 pre-treatment in pelvic region. Pain Section J - Health Conditions 1. Rarely or not at all 2. Occasionally 3. Frequently 4. Almost constantly 8. Unable to answer Pain Effect on Sleep: 3 (has to be in partial (R) sidelying or on back to sleep) Pain Interference with Therapy: 4 Pain Interference w/Day-to-Day: 4 Mental Status Patient Orientation: Person Transfers SCALE: Activities may be completed with or without assistive devices. 6-Zorftlcqcb-gvpjlbt completes the activity by him/herself with no assistance from a helper. 5-Set-up or Clean-up Assistance-helper sets up or cleans up; patient completes activity. [place] assists only prior to or following the activity. 4-Supervision or Touching Assistance-helper provides verbal cues and/or touching/steadying and/or contact guard assistance as patient completes activity. Assistance may be provided throughout the activity or intermittently. 3-Partial/Moderate Assistance-helper does LESS THAN HALF the effort. [place] lifts, holds or supports trunk or limbs, but provides less than half the effort. 2-Substantial/Maximal Assistance-helper does MORE THAN HALF the effort. [place] lifts or holds trunk or limbs and provides more than half the effort. 9-Grzqxeltx-abeotk does ALL the effort. Patient does none of the effort to complete the activity. Or, the assistance of 2 or more helpers is required for the patient to complete the activity. If activity was not attempted, code reason: 7-Patient Refused. 9-Not Applicable-not attempted and the patient did not perform the activity before the current illness, exacerbation or injury. 10-Not Attempted due to Environmental Limitations-(lack of equipment, weather restraints, etc.). 88-Not Attempted due to Medical Conditions or Safety Concerns. Sit to Lying (QC): 4 Lying to Sitting/Side of Bed(Q: 4 Sit to Stand (QC): 4 Pt SBA with bed mobility. CGA with sit to stand transfers. Verbalizes increased pain with sit to stand transfers. Weight Bearing Weight Bearing/Tolerated Weight Bearing/Tolerated Gait Training Does the Patient Walk?: Yes Distance: 300, 100 Walk 10 feet (QC): 4 Walk 50 ft with 2 Turns(QC): 4 Walk 150 ft (QC): 4 Gait Persons Needed: 1 Gait Assistive Device: FWW Pt SBA with use of FWW. Displays full weight bearing during ambulation. Amb ulated 400 ft total. Steady gait pattern with no loss of balance demonstrated. E-stim during treatment for pain relief. Treatments Standing exercise: Hip ext x 10 Hip flx x 10 Hip abd x 10 Marching x 10 Side-stepping x 10 Heel/toe raises x 10 Assessment Current Status: Good Progress Pt displays good muscle strength and endurance throughout treatment. Displays signs of increased pain with transfers. Demonstrated steady gait pattern with no loss of balance. Most pain reported with hip abd exercises. Continue to progress pt as tolerated to improve functional ability and decrease pain. PT Chcf Goals Rocket Engine Tester Goals PT Chcf Goals Time Frame: Oct 14, 2022 Roll Left & Right (QC): 6 Sit to Lying (QC): 6 Lying-Sitting on Side/Bed(QC): 6 Sit to Stand (QC): 6 Chair/Tku-rq-Slsrd Xfer(QC): 6 (with FWW) Toilet Transfer (QC): 6 Car Transfer (QC): 5 Does the Patient Walk: Yes Walk 10 feet (QC): 6 (with FWW) Walk 50ft with 2 Turns (QC): 6 (with FWW) Walk 150 ft (QC): 6 (with FWW) Walking 10ft on Uneven Surface: 6 (with FWW) 1 Step (curb) (QC): 6 (with FWW) 4 Steps (QC): 6 (with (B) rails) 12 Steps (QC): 5 (with (B) rails) Picking up an Object (QC): 6 (with geriatric assistant) Does the Pt use WC or Scooter?: No Wheel 50 feet with 2 turns (QC: 9 Type: N/A Wheel 150 feet: 9 Type: N/A PT Plan Treatment/Plan Treatment Plan: Continue Plan of Care Treatment Plan: Bed Mobility, Education, Functional Activity Sivan, Functional Strength, Group Therapy, Gait, Safety, Therapeutic Exercise, Transfers, Other (IFC/TENS prn) Treatment Duration: Oct 14, 2022 Frequency: At least 5 of 7 days/Wk (IRF) Estimated Hrs Per Day: 1.5 hours per day Patient and/or Family Agrees t: Yes Time Time In: 1000 Time Out: 1100 DATE: Sep 24, 2022 Total Billed Treatment Time: 60 Total Billed Treatment 1 visit GT x 2 ES x 1 EX x 1 VINICIUS BLANDON PTA Sep 24, 2022 13:42
--- NOTE | 2022-09-24 13:52 | Physical Therapy Daily Note ---
PT Daily Note-Current Subjective Pt found lying in bed upon entry. Agreed to PT. Reports pain in L pelvic region during gait training. Does not rate pain. E-stim placed on patient throughout visit for pain relief per pt request. Pain Section J - Health Conditions 1. Rarely or not at all 2. Occasionally 3. Frequently 4. Almost constantly 8. Unable to answer Pain Effect on Sleep: 3 (has to be in partial (R) sidelying or on back to sl eep) Pain Interference with Therapy: 4 Pain Interference w/Day-to-Day: 4 Mental Status Patient Orientation: Person Transfers SCALE: Activities may be completed with or without assistive devices. 1-Wslkdyaexd-nmpovkx completes the activity by him/herself with no assistance from a helper. 5-Set-up or Clean-up Assistance-helper sets up or cleans up; patient completes activity. [place] assists only prior to or following the activity. 4-Supervision or Touching Assistance-helper provides verbal cues and/or touching/steadying and/or contact guard assistance as patient completes activity. Assistance may be provided throughout the activity or intermittently. 3-Partial/Moderate Assistance-helper does LESS THAN HALF the effort. [place] lifts, holds or supports trunk or limbs, but provides less than half the effort. 2-Substantial/Maximal Assistance-helper does MORE THAN HALF the effort. [place] lifts or holds trunk or limbs and provides more than half the effort. 1-Qhgcjuwoy-guoqsw does ALL the effort. Patient does none of the effort to complete the activity. Or, the assistance of 2 or more helpers is required for the patient to complete the activity. If activity was not attempted, code reason: 7-Patient Refused. 9-Not Applicable-not attempted and the patient did not perform the activity before the current illness, exacerbation or injury. 10-Not Attempted due to Environmental Limitations-(lack of equipment, weather restraints, etc.). 88-Not Attempted due to Medical Conditions or Safety Concerns. Sit to Lying (QC): 4 Lying to Sitting/Side of Bed(Q: 4 Sit to Stand (QC): 4 Pt SBA with bed mobility. CGA with sit to stand transfers. Increased pain displayed while completing all transfers. Weight Bearing Weight Bearing/Tolerated Weight Bearing/Tolerated Gait Training Does the Patient Walk?: Yes Distance: 500, 100 Walk 10 feet (QC): 4 Walk 50 ft with 2 Turns(QC): 4 Walk 150 ft (QC): 4 Gait Persons Needed: 1 Gait Assistive Device: FWW Pt ambulates using FWW and CGA. Ambulated 600 feet total. Displays steady gait pattern with no loss of balance. Worked on taking bigger steps and ambulating without an assistive device in parallel bars. Increased pain reported while ambulating with no assistive device. Treatments Standing exercise: Step-ups B x 10 Assessment Current Status: Good Progress Pt tolerated increased gait training well. Displays good muscle strength and endurance throughout. Slight increase in pain reported with gait training but overall pain is improving. No increased pain reported while performing step-ups. No loss of balance displayed during ambulation. Continue to progress pt as tolerated per POC to improve functional ability and decrease pain. PT School Crossing Guard Goals Skilled Nursing Goals PT School Crossing Guard Goals Time Frame: Oct 14, 2022 Roll Left & Right (QC): 6 Sit to Lying (QC): 6 Lying-Sitting on Side/Bed(QC): 6 Sit to Stand (QC): 6 Chair/Gyb-xn-Hcvix Xfer(QC): 6 (with FWW) Toilet Transfer (QC): 6 Car Transfer (QC): 5 Does the Patient Walk: Yes Walk 10 feet (QC): 6 (with FWW) Walk 50ft with 2 Turns (QC): 6 (with FWW) Walk 150 ft (QC): 6 (with FWW) Walking 10ft on Uneven Surface: 6 (with FWW) 1 Step (curb) (QC): 6 (with FWW) 4 Steps (QC): 6 (with (B) rails) 12 Steps (QC): 5 (with (B) rails) Picking up an Object (QC): 6 (with directional survey drafter) Does the Pt use WC or Scooter?: No Wheel 50 feet with 2 turns (QC: 9 Type: N/A Wheel 150 feet: 9 Type: N/A PT Plan Treatment/Plan Treatment Plan: Continue Plan of Care Treatment Plan: Bed Mobility, Education, Functional Activity Sivan, Functional Strength, Group Therapy, Gait, Safety, Therapeutic Exercise, Transfers, Other (IFC/TENS prn) Treatment Duration: Oct 14, 2022 Frequency: At least 5 of 7 days/Wk (IRF) Estimated Hrs Per Day: 1.5 hours per day Patient and/or Family Agrees t: Yes Time Time In: 1300 Time Out: 1330 DATE: Sep 24, 2022 Total Billed Treatment Time: 30 Total Billed Treatment 1 visit ES x 1 GT x 1 MAJORVINICIUS POUAKO KURA KAUPAPA MAORI Sep 24, 2022 13:52
--- NOTE | 2022-09-24 13:58 | Occupational Ther Daily Note ---
OT Current Status-Daily Note Subjective Pt seen in room, up in bed, agreeable to OT. No pain reported except during movement with some exercises and with moving supine to sit and back to supine. Not rated. Appearance Alert, cooperative ADL-Treatment Therapy Code Descriptions/Definitions Functional [place] Measure: 0=Not Assessed/NA 4=Minimal Assistance 1=Total Assistance 5=Supervision or Setup 2=Maximal Assistance 6=Modified [place] 3=Moderate Assistance 7=Complete IndependenceSCALE: Activities may be completed with or without assistive devices. 8-Zszmfrkfrv-ipaogiy completes the activity by him/herself with no assistance from a helper. 5-Set-up or Clean-up Assistance-helper sets up or cleans up; patient completes activity. [place] assists only prior to or following the activity. 4-Supervision or Touching Assistance-helper provides verbal cues and/or touching/steadying and/or contact guard assistance as patient completes activity. Assistance may be provided throughout the activity or intermittently. 3-Partial/Moderate Assistance-helper does LESS THAN HALF the effort. [place] lifts, holds or supports trunk or limbs, but provides less than half the effort. 2-Substantial/Maximal Assistance-helper does MORE THAN HALF the effort. [place] lifts or holds trunk or limbs and provides more than half the effort. 6-Zbjxocqye-amddft does ALL the effort. Patient does none of the effort to complete the activity. Or, the assistance of 2 or more helpers is required for the patient to complete the activity. If activity was not attempted, code reason: 7-Patient Refused. 9-Not Applicable-not attempted and the patient did not perform the activity before the current illness, exacerbation or injury. 10-Not Attempted due to Environmental Limitations-(lack of equipment, weather restraints, etc.). 88-Not Attempted due to Medical Conditions or Safety Concerns. Other Treatment BSC placed over toilet for pt to use so that he has arms to help with transfer. Pt did not need to toilet at this time. Pt given written exercise sheet for three theraband exercises using orange theraband (medium resistance). Pt educ on the three exercises. Exercise working on shoulder movement was painful so it was stopped. Pt to do this exercise on R UE only. Other two exercises work on bilat elbow flex and ext as needed to help with transfers. Pt also provided with green theraputty to help with UE strengthening. Pt educ on one exercise with putmadelyn. Pt encouraged to do these at least once a day. All questions answered to his satisfaction. Pt left up in bed, three rails up, bed alarm on, all needs met. Education OT Patient Education: Exercise program Teaching Recipient: Patient Teaching Methods: Demonstration, Discussion Response to Teaching: Verbalize Understanding, Return Demonstration, Reinforcement Needed OT Short Term Goals Short Term Goals Time Frame: Oct 01, 2022 Shower/bathe self: 5 Upper body dressin Lower body dressin Putting on/taking off footwear: 5 OT Deburring And Tooling Machine Operator Goals Deburring And Tooling Machine Operator Goals Time Frame: Oct 15, 2022 Acute change in mental status: 0 Inattention: 0 Disorganized thinkin Altered level of consciousness: 0 Eating (QC): 6 Oral Hygiene (QC): 6 Toileting Hygiene (QC): 6 Shower/Bathe Self (QC): 6 Upper Body Dressing (QC): 6 Lower Body Dressing (QC): 6 On/Off Footwear (QC): 6 Additional Goals: 1-Demonstrate ADL Tasks, 2-Verbalize Understanding, 3- ImproveStrength/Sivan 1=Demonstrate adherence to instructed precautions during ADL tasks. 2=Patient will verbalize/demonstrate understanding of assistive devices/modifications for ADL. 3=Patient will improve strength/tolerance for activity to enable patient to perform ADL's. OT Education/Plan Discharge Recommendations Plan/Recommendations: Continue POC Treatment Plan/Plan of Care Patient would benefit from OT for education, treatment and training to promote independence in ADL's, mobility, safety and/or upper extremity function for ADL's. Plan of Care: ADL Retraining, Functional Mobility, Group Exercise/Act as Ind, UE Funct Exercise/Act Treatment Duration: Oct 15, 2022 Frequency: At least 5 of 7 days/Wk (IRF) Estimated Hrs Per Day: 1.5 hours per day Agreement: Yes Rehab Potential: Good Time Start Time: 12:30 Stop Time: 13:00 DATE: Sep 24, 2022 Total Time Billed (hr/min): 30 Billed Treatment Time visit, 30 minutes exercise LUCRETIA VARELA OT Sep 24, 2022 13:58
[2022-09-24] MEDS: morphine IMMEDIATE RELEASE 15 MG TABLET PO PRN (16:35)
[2022-09-24] MEDS: ENOXAPARIN 40 MG/0.4 ML (LOVENOX) SYR SC SCH (17:54)
[2022-09-24 19:48] VITALS: BP 124/77
--- NOTE | 2022-09-25 07:28 | PM&R Progress Note ---
Subjective HPI/CC On Admission Date Seen by Provider: Sep 25, 2022 Time Seen by Provider: 12:00 Subjective/Events-last exam 09/25/2022: No major issues Back rash so will start Benadryl cream to back No new pain 09/24/2022: Much improved Pain improved Asked about Dilaudid and I explained that is only for post op pain and MS Contin was added to help him with his pain No issues Review of Systems General: Fatigue, Malaise Objective Exam Vital Signs Vital Signs Date Time Temp Pulse Resp B/P (MAP) Pulse Ox O2 Delivery O2 Flow Rate FiO2 09/25/22 07:30 36.5 80 20 124/70 (88) 94 Room Air Capillary Refill : General Appearance: No Apparent Distress, WD/WN HEENT: PERRL/EOMI, Normal ENT Inspection, Pharynx Normal Neck: Full Range of Motion, Normal Inspection, Non Tender, Supple, Carotid Bruit Respiratory: Chest Non Tender, Lungs Clear, Normal Breath Sounds, No Accessory Muscle Use, No Respiratory Distress Cardiovascular: Regular Rate, Rhythm, No Edema, No Gallop, No JVD, No Murmur, Normal Peripheral Pulses Gastrointestinal: Normal Bowel Sounds, No Organomegaly, No Pulsatile Mass, Non Tender, Soft Back: Normal Inspection, No CVA Tenderness, Decreased Range of Motion Extremity: Normal Capillary Refill, Normal Inspection, Non Tender, No Calf Tenderness, No Pedal Edema, Other (decreased LE due to pelvic pain) Neurologic/Psychiatric: Alert, Oriented x3, No Motor/Sensory Deficits, Normal Mood/Affect Skin: Normal Color, Warm/Dry Lymphatic: No Adenopathy Results/Procedures Lab Patient resulted labs reviewed. FIM Transfers Therapy Code Descriptions/Definitions Functional [place] Measure: 0=Not Assessed/NA 4=Minimal Assistance 1=Total Assistance 5=Supervision or Setup 2=Maximal Assistance 6=Modified [place] 3=Moderate Assistance 7=Complete IndependenceSCALE: Activities may be completed with or without assistive devices. 5-Pupxuxxtyx-qtzgtgn completes the activity by him/herself with no assistance from a helper. 5-Set-up or Clean-up Assistance-helper sets up or cleans up; patient completes activity. [place] assists only prior to or following the activity. 4-Supervision or Touching Assistance-helper provides verbal cues and/or touching/steadying and/or contact guard assistance as patient completes ac tivity. Assistance may be provided throughout the activity or intermittently. 3-Partial/Moderate Assistance-helper does LESS THAN HALF the effort. [place] lifts, holds or supports trunk or limbs, but provides less than half the effort. 2-Substantial/Maximal Assistance-helper does MORE THAN HALF the effort. [place] lifts or holds trunk or limbs and provides more than half the effort. 5-Psfunbhsf-gakbmm does ALL the effort. Patient does none of the effort to complete the activity. Or, the assistance of 2 or more helpers is required for the patient to complete the activity. If activity was not attempted, code reason: 7-Patient Refused. 9-Not Applicable-not attempted and the patient did not perform the activity before the current illness, exacerbation or injury. 10-Not Attempted due to Environmental Limitations-(lack of equipment, weather restraints, etc.). 88-Not Attempted due to Medical Conditions or Safety Concerns. Roll Left to Right (QC): 4 (set-up and cues for bedrail due to pain) Sit to Lying (QC): 4 Sit to Stand (QC): 4 Chair/Nmo-kx-Mpnoc Xfer(QC): 3 (Min-CGA with FWW) Car Transfer (QC): 3 (Min (A) to lift LE's into car- painful transition.) Gait Training Does the Patient Walk?: Yes Distance: 500, 100 Walk 10 feet (QC): 4 Walk 50 ft with 2 Turns(QC): 4 Walk 150 ft (QC): 4 Walking 10ft/uneven surface-QC: 3 (min (A) with FWW and cues for walker placement) Gait Persons Needed: 1 Gait Assistive Device: FWW Wheelchair Training Does the Pt Use a Wheelchair?: No Wheel 50 ft with 2 turns (QC): 9 Wheel 150 ft (QC): 9 Stair Training 1 Step (curb) (QC): 3 (min (A) with FWW) 4 Steps (QC): 3 (min (A) (B) rails with max cues for stepping sequence, step to pattern. Increased pain with this activity.) 12 Steps (QC): 88 (not safe due to increased pain with 4 steps) Balance Picking up an Object (QC): 6 (with industrial truck driver. Unableto pick pen up floor without industrial truck driver - reaching down/forward caused increased pelvis pain.) ADL-Treatment Eating (QC): 6 Oral Hygiene (QC): 4 (SBA) Shower/Bathe Self (QC): 4 (CGA) Upper Body Dressing (QC): 5 Lower Body Dressing (QC): 4 (CGA) On/Off Footwear (QC): 4 (SBA) Toileting Hygiene (QC): 4 (CGA) Assessment/Plan Assessment and Plan Assess & Plan/Chief Complaint Assessment: Fracture of left Superior & inferior pubic ramus Left impacted sacral fracture HTN Hx Mitral valve prolapse Hx afib Multiple pain med allergies Constipation Plan: Pain control PT OT Home meds Constipation treatment 09/24/2022: BM+ Pain control 09/25/2022: No pain reported Checked meds and labs (1) Pelvic fracture TYREL FREIRE DO Sep 25, 2022 07:28
[2022-09-25 07:30] VITALS: BP 124/70
[2022-09-25] MEDS: VERAPAMIL SR 180 MG (CALAN SR) TAB PO SCH ×2 (08:04→20:00)
[2022-09-25] MEDS: ASPIRIN 81 MG CHEW (CHILDREN'S ASA) PO SCH (08:05)
[2022-09-25] MEDS: DOCUSATE SODIUM 100 MG (COLACE) CAP PO SCH ×2 (08:08→20:00)
[2022-09-25] MEDS: SENNA W/DOCUSATE (SENOKOT S) TABLET PO SCH ×2 (08:08→20:08)
[2022-09-25] MEDS: diphenhydrAMINE 25 MG TAB (BENADRYL) PO PRN ×3 (08:32→20:01)
[2022-09-25] MEDS: morphine ER 30 MG (MS CONTIN) TAB PO SCH ×2 (08:32→20:01)
[2022-09-25] MEDS: NICOTINE 21 MG (NICODERM) PATCH TD SCH (09:32)
[2022-09-25] MEDS: NICOTINE PATCH REMOVAL TP SCH (09:36)
--- NOTE | 2022-09-25 11:02 | Physical Therapy Daily Note ---
PT Daily Note-Current Subjective Pt found lying in bed upon entry. Agreed to PT. Reports 5/10 pain pre-treatment. Reports he was hurting bad this morning but has now had pain medication. Pain Section J - Health Conditions 1. Rarely or not at all 2. Occasionally 3. Frequently 4. Almost constantly 8. Unable to answer Pain Effect on Sleep: 3 (has to be in partial (R) sidelying or on back to sleep) Pain Interference with Therapy: 4 Pain Interference w/Day-to-Day: 4 Mental Status Patient Orientation: Person, Place Transfers SCALE: Activities may be completed with or without assistive devices. 9-Inaijinrsd-vwdshze completes the activity by him/herself with no assistance from a helper. 5-Set-up or Clean-up Assistance-helper sets up or cleans up; patient completes activity. [place] assists only prior to or following the activity. 4-Supervision or Touching Assistance-helper provides verbal cues and/or touching/steadying and/or contact guard assistance as patient completes activity. Assistance may be provided throughout the activity or intermittently. 3-Partial/Moderate Assistance-helper does LESS THAN HALF the effort. [place] lifts, holds or supports trunk or limbs, but provides less than half the effort. 2-Substantial/Maximal Assistance-helper does MORE THAN HALF the effort. [place] lifts or holds trunk or limbs and provides more than half the effort. 2-Wotzgwoht-mvhbvr does ALL the effort. Patient does none of the effort to complete the activity. Or, the assistance of 2 or more helpers is required for the patient to complete the activity. If activity was not attempted, code reason: 7-Patient Refused. 9-Not Applicable-not attempted and the patient did not perform the activity before the current illness, exacerbation or injury. 10-Not Attempted due to Environmental Limitations-(lack of equipment, weather restraints, etc.). 88-Not Attempted due to Medical Conditions or Safety Concerns. Lying to Sitting/Side of Bed(Q: 4 Sit to Stand (QC): 4 Pt SBA with ly to sit transfer. CGA with sit to stands for safety. Weight Bearing Weight Bearing/Tolerated Weight Bearing/Tolerated Gait Training Does the Patient Walk?: Yes Distance: 500 Walk 10 feet (QC): 4 Walk 50 ft with 2 Turns(QC): 4 Walk 150 ft (QC): 4 Gait Persons Needed: 1 Gait Assistive Device: FWW Pt ambulates with use of FWW and required SBA for safety. Displays steady gait pattern with no loss of balance. Ambulated 500 feet and required no rest breaks. Assessment Current Status: Good Progress Pt displays good muscle strength and endurance with therapeutic exercises. Demonstrated signs of pain while completing sit to stand transfers. Overall pain has been improving. Continue to progress pt per POC to improve strength and decrease pain. PT Fpc Goals Fpc Goals PT Turf And Grounds Supervisor Goals Time Frame: Oct 14, 2022 Roll Left & Right (QC): 6 Sit to Lying (QC): 6 Lying-Sitting on Side/Bed(QC): 6 Sit to Stand (QC): 6 Chair/Hmu-qe-Awfzd Xfer(QC): 6 (with FWW) Toilet Transfer (QC): 6 Car Transfer (QC): 5 Does the Patient Walk: Yes Walk 10 feet (QC): 6 (with FWW) Walk 50ft with 2 Turns (QC): 6 (with FWW) Walk 150 ft (QC): 6 (with FWW) Walking 10ft on Uneven Surface: 6 (with FWW) 1 Step (curb) (QC): 6 (with FWW) 4 Steps (QC): 6 (with (B) rails) 12 Steps (QC): 5 (with (B) rails) Picking up an Object (QC): 6 (with transfusion aide) Does the Pt use WC or Scooter?: No Wheel 50 feet with 2 turns (QC: 9 Type: N/A Wheel 150 feet: 9 Type: N/A PT Plan Treatment/Plan Treatment Plan: Continue Plan of Care Treatment Plan: Bed Mobility, Education, Functional Activity Sivan, Functional Strength, Group Therapy, Gait, Safety, Therapeutic Exercise, Transfers, Other (IFC/TENS prn) Treatment Duration: Oct 14, 2022 Frequency: At least 5 of 7 days/Wk (IRF) Estimated Hrs Per Day: 1.5 hours per day Patient and/or Family Agrees t: Yes Time Time In: 1005 Time Out: 1019 DATE: Sep 25, 2022 Total Billed Treatment Time: 14 Total Billed Treatment 1 visit GT x 1 MAJORVINICIUS MANAGER CANCER Sep 25, 2022 11:02
[2022-09-25] MEDS: morphine IMMEDIATE RELEASE 15 MG TABLET PO PRN (13:29)
[2022-09-25] MEDS: ALPRAZolam 0.25 MG (XANAX) TAB PO PRN (16:34)
[2022-09-25] MEDS: ENOXAPARIN 40 MG/0.4 ML (LOVENOX) SYR SC SCH (17:27)
[2022-09-25] MEDS: polyethylene glycoL POWDER 17 GM (MIRALAX) PACK PO SCH (20:00)
[2022-09-25 20:10] VITALS: BP 139/72
[2022-09-25] MEDS: diphenhydrAMINE 2% 30 GM CR (ALLERGY CREAM) TOP PRN (20:25)
--- NOTE | 2022-09-26 06:30 | PM&R Progress Note ---
Subjective HPI/CC On Admission Date Seen by Provider: Sep 26, 2022 Time Seen by Provider: 12:00 Subjective/Events-last exam 09/26/2022: No major issues Back rash improved Pain controlled 09/25/2022: No major issues Back rash so will start Benadryl cream to back No new pain 09/24/2022: Much improved Pain improved Asked about Dilaudid and I explained that is only for post op pain and MS Contin was added to help him with his pain No issues Review of Systems General: Fatigue, Malaise Objective Exam Vital Signs Vital Signs Date Time Temp Pulse Resp B/P (MAP) Pulse Ox O2 Delivery O2 Flow Rate FiO2 09/26/22 20:25 37.1 79 18 140/71 (94) 93 Room Air Capillary Refill : General Appearance: No Apparent Distress, WD/WN HEENT: PERRL/EOMI, Normal ENT Inspection, Pharynx Normal Neck: Full Range of Motion, Normal Inspection, Non Tender, Supple, Carotid Bruit Respiratory: Chest Non Tender, Lungs Clear, Normal Breath Sounds, No Accessory Muscle Use, No Respiratory Distress Cardiovascular: Regular Rate, Rhythm, No Edema, No Gallop, No JVD, No Murmur, Normal Peripheral Pulses Gastrointestinal: Normal Bowel Sounds, No Organomegaly, No Pulsatile Mass, Non Tender, Soft Back: Normal Inspection, No CVA Tenderness, Decreased Range of Motion Extremity: Normal Capillary Refill, Normal Inspection, Non Tender, No Calf Tenderness, No Pedal Edema, Other Neurologic/Psychiatric: Alert, Oriented x3, No Motor/Sensory Deficits, Normal Mood/Affect Skin: Normal Color, Warm/Dry Lymphatic: No Adenopathy Results/Procedures Lab Patient resulted labs reviewed. FIM Transfers Therapy Code Descriptions/Definitions Functional [place] Measure: 0=Not Assessed/NA 4=Minimal Assistance 1=Total Assistance 5=Supervision or Setup 2=Maximal Assistance 6=Modified [place] 3=Moderate Assistance 7=Complete IndependenceSCALE: Activities may be completed with or without assistive devices. 0-Bhaerccuwo-pikggkz completes the activity by him/herself with no assistance from a helper. 5-Set-up or Clean-up Assistance-helper sets up or cleans up; patient completes activity. [place] assists only prior to or following the activity. 4-Supervision or Touching Assistance-helper provides verbal cues and/or touching/steadying and/or contact guard assistance as patient completes activity. Assistance may be provided throughout the activity or intermittently. 3-Partial/Moderate Assistance-helper does LESS THAN HALF the effort. [place] lifts, holds or supports trunk or limbs, but provides less than half the effort. 2-Substantial/Maximal Assistance-helper does MORE THAN HALF the effort. [place] lifts or holds trunk or limbs and provides more than half the effort. 8-Qclysvgdz-ktprhq does ALL the effort. Patient does none of the effort to complete the activity. Or, the assistance of 2 or more helpers is required for the patient to complete the activity. If activity was not attempted, code reason: 7-Patient Refused. 9-Not Applicable-not attempted and the patient did not perform the activity before the current illness, exacerbation or injury. 10-Not Attempted due to Environmental Limitations-(lack of equipment, weather restraints, etc.). 88-Not Attempted due to Medical Conditions or Safety Concerns. Roll Left to Right (QC): 4 (set-up and cues for bedrail due to pain) Sit to Lying (QC): 4 Sit to Stand (QC): 4 Chair/Yfq-pb-Hidsm Xfer(QC): 3 (Min-CGA with FWW) Car Transfer (QC): 3 (Min (A) to lift LE's into car- painful transition.) Gait Training Does the Patient Walk?: Yes Distance: 500 Walk 10 feet (QC): 4 Walk 50 ft with 2 Turns(QC): 4 Walk 150 ft (QC): 4 Walking 10ft/uneven surface-QC: 3 (min (A) with FWW and cues for walker placem ent) Gait Persons Needed: 1 Gait Assistive Device: FWW Wheelchair Training Does the Pt Use a Wheelchair?: No Wheel 50 ft with 2 turns (QC): 9 Wheel 150 ft (QC): 9 Stair Training 1 Step (curb) (QC): 3 (min (A) with FWW) 4 Steps (QC): 3 (min (A) (B) rails with max cues for stepping sequence, step to pattern. Increased pain with this activity.) 12 Steps (QC): 88 (not safe due to increased pain with 4 steps) Balance Picking up an Object (QC): 6 (with digital account director. Unableto pick pen up floor without digital account director - reaching down/forward caused increased pelvis pain.) ADL-Treatment Eating (QC): 6 Oral Hygiene (QC): 4 (SBA) Shower/Bathe Self (QC): 4 (CGA) Upper Body Dressing (QC): 5 Lower Body Dressing (QC): 4 (CGA) On/Off Footwear (QC): 4 (SBA) Toileting Hygiene (QC): 4 (CGA) Assessment/Plan Assessment and Plan Assess & Plan/Chief Complaint Assessment: Fracture of left Superior & inferior pubic ramus Left impacted sacral fracture HTN Hx Mitral valve prolapse Hx afib Multiple pain med allergies Constipation Plan: Pain control PT OT Home meds Constipation treatment 09/24/2022: BM+ Pain control 09/25/2022: No pain reported Checked meds and labs 09/26/2022: Monitor rash Pain control (1) Pelvic fracture TYREL FREIRE DO Sep 26, 2022 06:30
[2022-09-26] MEDS: morphine IMMEDIATE RELEASE 15 MG TABLET PO PRN ×2 (06:32→17:26)
[2022-09-26] MEDS: diphenhydrAMINE 25 MG TAB (BENADRYL) PO PRN ×4 (06:32→20:22)
[2022-09-26 07:10] VITALS: BP 111/68
[2022-09-26] MEDS: ASPIRIN 81 MG CHEW (CHILDREN'S ASA) PO SCH (07:57)
[2022-09-26] MEDS: VERAPAMIL SR 180 MG (CALAN SR) TAB PO SCH ×2 (07:57→20:22)
[2022-09-26] MEDS: NICOTINE 21 MG (NICODERM) PATCH TD SCH (07:58)
[2022-09-26] MEDS: DOCUSATE SODIUM 100 MG (COLACE) CAP PO SCH ×2 (07:59→20:22)
[2022-09-26] MEDS: polyethylene glycoL POWDER 17 GM (MIRALAX) PACK PO SCH ×2 (09:04→20:22)
[2022-09-26] MEDS: SENNA W/DOCUSATE (SENOKOT S) TABLET PO SCH ×2 (09:06→20:22)
[2022-09-26] MEDS: NICOTINE PATCH REMOVAL TP SCH (09:06)
[2022-09-26] MEDS: morphine ER 30 MG (MS CONTIN) TAB PO SCH ×2 (10:43→20:22)
[2022-09-26] MEDS: NYSTATIN CREAM (MYCOSTATIN) 30 GM TUBE TP SCH ×2 (12:23→20:24)
[2022-09-26] MEDS: LACTULOSE SYRUP 10GM/15ML (ENULOSE) 30ML UDC PO PRN (14:48)
[2022-09-26] MEDS: ACETAMINOPHEN 325 MG TABLET PO PRN (15:51)
[2022-09-26] MEDS: ENOXAPARIN 40 MG/0.4 ML (LOVENOX) SYR SC SCH (17:26)
[2022-09-26] MEDS: MICONAZOLE 2% POWDER (DESENEX AF) 90 GM TOP SCH (20:24)
[2022-09-26 20:25] VITALS: BP 140/71
[2022-09-27] MEDS: ALPRAZolam 0.25 MG (XANAX) TAB PO PRN ×2 (05:53→18:33)
[2022-09-27 06:04] LABS: HEMATOCRIT 36 % (40-54); HEMOGLOBIN 12.2 g/dL (13.3-17.7); MEAN CORPUSCULAR HEMOGLOBIN 32 pg (25-34); MEAN CORPUSCULAR HGB CONC 34 g/dL (32-36); MEAN CORPUSCULAR VOLUME 94 fL (80-99); MEAN PLATELET VOLUME 8.9 fL (9.0-12.2); PLATELET COUNT 303 10^3/uL (130-400); WHITE BLOOD COUNT 5.7 10^3/uL (4.3-11.0)
[2022-09-27 06:09] LABS: ALBUMIN 3.4 GM/DL (3.2-4.5)
[2022-09-27 06:10] LABS: POTASSIUM 4.3 MMOL/L (3.6-5.0)
[2022-09-27 06:11] LABS: CALCIUM 8.9 MG/DL (8.5-10.1)
[2022-09-27 06:12] LABS: TOTAL PROTEIN 6.4 GM/DL (6.4-8.2)
--- NOTE | 2022-09-27 06:13 | PM&R Progress Note ---
Subjective HPI/CC On Admission Date Seen by Provider: Sep 27, 2022 Time Seen by Provider: 09:00 Subjective/Events-last exam 09/27/2022: Much improved Back rash improved No issues 09/26/2022: No major issues Back rash improved Pain controlled 09/25/2022: No major issues Back rash so will start Benadryl cream to back No new pain 09/24/2022: Much improved Pain improved Asked about Dilaudid and I explained that is only for post op pain and MS Contin was added to help him with his pain No issues Review of Systems General: Fatigue, Malaise Objective Exam Vital Signs Vital Signs Date Time Temp Pulse Resp B/P (MAP) Pulse Ox O2 Delivery O2 Flow Rate FiO2 09/27/22 20:32 36.9 62 16 125/64 (84) 94 Room Air Capillary Refill : General Appearance: No Apparent Distress, WD/WN HEENT: PERRL/EOMI, Normal ENT Inspection, Pharynx Normal Neck: Full Range of Motion, Normal Inspection, Non Tender, Supple, Carotid Bruit Respiratory: Chest Non Tender, Lungs Clear, Normal Breath Sounds, No Accessory Muscle Use, No Respiratory Distress Cardiovascular: Regular Rate, Rhythm, No Edema, No Gallop, No JVD, No Murmur, Normal Peripheral Pulses Gastrointestinal: Normal Bowel Sounds, No Organomegaly, No Pulsatile Mass, Non Tender, Soft Back: Normal Inspection, No CVA Tenderness, Decreased Range of Motion Extremity: Normal Capillary Refill, Normal Inspection, Non Tender, No Calf Tenderness, No Pedal Edema, Other Neurologic/Psychiatric: Alert, Oriented x3, No Motor/Sensory Deficits, Normal Mood/Affect Skin: Normal Color, Warm/Dry Lymphatic: No Adenopathy Results/Procedures Lab Laboratory Tests 09/27/22 05:54 Patient resulted labs reviewed. FIM Transfers Therapy Code Descriptions/Definitions Functional [place] Measure: 0=Not Assessed/NA 4=Minimal Assistance 1=Total Assistance 5=Supervision or Setup 2=Maximal Assistance 6=Modified [place] 3=Moderate Assistance 7=Complete IndependenceSCALE: Activities may be completed with or without assistive devices. 0-Lfgyghajch-bdxajic completes the activity by him/herself with no assistance from a helper. 5-Set-up or Clean-up Assistance-helper sets up or cleans up; patient completes activity. [place] assists only prior to or following the activity. 4-Supervision or Touching Assistance-helper provides verbal cues and/or touching/steadying and/or contact guard assistance as patient completes activity. Assistance may be provided throughout the activity or intermittently. 3-Partial/Moderate Assistance-helper does LESS THAN HALF the effort. [place] lifts, holds or supports trunk or limbs, but provides less than half the effort. 2-Substantial/Maximal Assistance-helper does MORE THAN HALF the effort. [place] lifts or holds trunk or limbs and provides more than half the effort. 2-Xlbvnbfen-djfjfd does ALL the effort. Patient does none of the effort to complete the activity. Or, the assistance of 2 or more helpers is required for the patient to complete the activity. If activity was not attempted, code reason: 7-Patient Refused. 9-Not Applicable-not attempted and the patient did not perform the activity before the current illness, exacerbation or injury. 10-Not Attempted due to Environmental Limitations-(lack of equipment, weather restraints, etc.). 88-Not Attempted due to Medical Conditions or Safety Concerns. Roll Left to Right (QC): 4 (set-up and cues for bedrail due to pain) Sit to Lying (QC): 4 Sit to Stand (QC): 4 Chair/Ttu-mv-Dnpid Xfer(QC): 3 (Min-CGA with FWW) Car Transfer (QC): 3 (Min (A) to lift LE's into car- painful transition.) Gait Training Does the Patient Walk?: Yes Distance: 500 Walk 10 feet (QC): 4 Walk 50 ft with 2 Turns(QC): 4 Walk 150 ft (QC): 4 Walking 10ft/uneven surface-QC: 3 (min (A) with FWW and cues for walker placement) Gait Persons Needed: 1 Gait Assistive Device: FWW Wheelchair Training Does the Pt Use a Wheelchair?: No Wheel 50 ft with 2 turns (QC): 9 Wheel 150 ft (QC): 9 Stair Training 1 Step (curb) (QC): 3 (min (A) with FWW) 4 Steps (QC): 3 (min (A) (B) rails with max cues for stepping sequence, step to pattern. Increased pain with this activity.) 12 Steps (QC): 88 (not safe due to increased pain with 4 steps) Balance Picking up an Object (QC): 6 (with oil producer. Unableto pick pen up floor without oil producer - reaching down/forward caused increased pelvis pain.) ADL-Treatment Eating (QC): 6 Oral Hygiene (QC): 4 (SBA) Shower/Bathe Self (QC): 4 (CGA) Upper Body Dressing (QC): 5 Lower Body Dressing (QC): 4 (CGA) On/Off Footwear (QC): 4 (SBA) Toileting Hygiene (QC): 4 (CGA) Assessment/Plan Assessment and Plan Assess & Plan/Chief Complaint Assessment: Fracture of left Superior & inferior pubic ramus Left impacted sacral fracture HTN Hx Mitral valve prolapse Hx afib Multiple pain med allergies Constipation Plan: Pain control PT OT Home meds Constipation treatment 09/24/2022: BM+ Pain control 09/25/2022: No pain reported Checked meds and labs 09/26/2022: Monitor rash Pain control 09/27/2022: Bowel regimen to intensify (1) Pelvic fracture TYREL FREIRE DO Sep 27, 2022 06:13
[2022-09-27 06:14] LABS: BILIRUBIN,TOTAL 0.6 MG/DL (0.1-1.0)
[2022-09-27 06:16] LABS: CREATININE SERUM 0.85 MG/DL (0.60-1.30)
[2022-09-27] MEDS: ACETAMINOPHEN 325 MG TABLET PO PRN ×2 (07:04→16:19)
[2022-09-27] MEDS: VERAPAMIL SR 180 MG (CALAN SR) TAB PO SCH ×2 (07:57→20:37)
[2022-09-27] MEDS: ASPIRIN 81 MG CHEW (CHILDREN'S ASA) PO SCH (07:57)
[2022-09-27] MEDS: DOCUSATE SODIUM 100 MG (COLACE) CAP PO SCH ×3 (07:58→20:39)
[2022-09-27] MEDS: LACTULOSE SYRUP 10GM/15ML (ENULOSE) 30ML UDC PO PRN (07:58)
[2022-09-27 08:00] VITALS: BP 106/60
[2022-09-27] MEDS: polyethylene glycoL POWDER 17 GM (MIRALAX) PACK PO SCH ×2 (08:00→20:39)
[2022-09-27] MEDS: MICONAZOLE 2% POWDER (DESENEX AF) 90 GM TOP SCH ×2 (08:00→20:40)
[2022-09-27] MEDS: SENNA W/DOCUSATE (SENOKOT S) TABLET PO SCH ×3 (08:00→20:39)
[2022-09-27] MEDS: NYSTATIN CREAM (MYCOSTATIN) 30 GM TUBE TP SCH ×3 (08:01→20:40)
[2022-09-27] MEDS: NICOTINE PATCH REMOVAL TP SCH (11:12)
[2022-09-27] MEDS: NICOTINE 21 MG (NICODERM) PATCH TD SCH (11:12)
[2022-09-27] MEDS: morphine ER 30 MG (MS CONTIN) TAB PO SCH ×2 (11:12→21:00)
--- NOTE | 2022-09-27 11:13 | Physical Therapy Daily Note ---
PT Daily Note-Current Subjective Pt found lying in bed upon entry. Agreed to PT. Reports 5/10 pain while seated on EOB. States that pain is in inner L pelvic region. Reports that he would like to complete treatment without e-stim unit today. Pain Section J - Health Conditions 1. Rarely or not at all 2. Occasionally 3. Frequently 4. Almost constantly 8. Unable to answer Pain Effect on Sleep: 3 (has to be in partial (R) sidelying or on back to sleep) Pain Interference with Therapy: 4 Pain Interference w/Day-to-Day: 4 Mental Status Patient Orientation: Person, Place Transfers SCALE: Activities may be completed with or without assistive devices. 4-Jgbdhgmakv-yqjdvhc completes the activity by him/herself with no assistance from a helper. 5-Set-up or Clean-up Assistance-helper sets up or cleans up; patient completes activity. [place] assists only prior to or following the activity. 4-Supervision or Touching Assistance-helper provides verbal cues and/or touching/steadying and/or contact guard assistance as patient completes activity. Assistance may be provided throughout the activity or intermittently. 3-Partial/Moderate Assistance-helper does LESS THAN HALF the effort. [place] lifts, holds or supports trunk or limbs, but provides less than half the effort. 2-Substantial/Maximal Assistance-helper does MORE THAN HALF the effort. [place] lifts or holds trunk or limbs and provides more than half the effort. 8-Pbehgxujo-tuhhlq does ALL the effort. Patient does none of the effort to complete the activity. Or, the assistance of 2 or more helpers is required for the patient to complete the activity. If activity was not attempted, code reason: 7-Patient Refused. 9-Not Applicable-not attempted and the patient did not perform the activity before the current illness, exacerbation or injury. 10-Not Attempted due to Environmental Limitations-(lack of equipment, weather restraints, etc.). 88-Not Attempted due to Medical Conditions or Safety Concerns. Lying to Sitting/Side of Bed(Q: 4 Sit to Stand (QC): 4 Pt SBA with bed mobility. Increased pain displayed while completing transfers. Weight Bearing Weight Bearing/Tolerated Weight Bearing/Tolerated Gait Training Does the Patient Walk?: Yes Distance: 500, 100 Walk 10 feet (QC): 4 Walk 50 ft with 2 Turns(QC): 4 Walk 150 ft (QC): 4 Gait Assistive Device: FWW Pt ambulated 600 feet total with use of FWW and required SBA for safety. Reports increased pain while weight bearing on LLE. Displays steady gait pattern with no loss of balance. No rest breaks required with ambulation. Wheelchair Training Does the Pt Use a Wheelchair?: No Stair Training Stair Training: Handrails/: 2 handrails #of Steps: 8 1 Step (curb) (QC): 4 4 Steps (QC): 4 Stairs: Pattern: Step to Pt ascends/descends 8 steps total while using two handrails. Verbal cues required for proper step pattern. Exercises NuStep Minutes: 5 NuStep Workload: 2 Treatments Standing exercises: Step-ups forward/sideways x 10 ea B Side-stepping at // x 3 trips Assessment Current Status: Good Progress Pt demonstrates good muscle strength and endurance throughout visit. Reports slight increased pain with ambulation and therapeutic exercises. Pt has most difficulty completing side-stepping at parallel bars. Continue to progress pt as tolerate per POC to improved strength, endurance, and decrease pain. PT Grocery Deliverer Goals Long-Term Goals PT Long-Term Goals Time Frame: Oct 14, 2022 Roll Left & Right (QC): 6 Sit to Lying (QC): 6 Lying-Sitting on Side/Bed(QC): 6 Sit to Stand (QC): 6 Chair/Rms-bs-Sogtn Xfer(QC): 6 (with FWW) Toilet Transfer (QC): 6 Car Transfer (QC): 5 Does the Patient Walk: Yes Walk 10 feet (QC): 6 (with FWW) Walk 50ft with 2 Turns (QC): 6 (with FWW) Walk 150 ft (QC): 6 (with FWW) Walking 10ft on Uneven Surface: 6 (with FWW) 1 Step (curb) (QC): 6 (with FWW) 4 Steps (QC): 6 (with (B) rails) 12 Steps (QC): 5 (with (B) rails) Picking up an Object (QC): 6 (with anesthesiology physician) Does the Pt use WC or Scooter?: No Wheel 50 feet with 2 turns (QC: 9 Type: N/A Wheel 150 feet: 9 Type: N/A PT Plan Treatment/Plan Treatment Plan: Continue Plan of Care Treatment Plan: Bed Mobility, Education, Functional Activity Sivan, Functional Strength, Group Therapy, Gait, Safety, Therapeutic Exercise, Transfers, Other (IFC/TENS prn) Treatment Duration: Oct 14, 2022 Frequency: At least 5 of 7 days/Wk (IRF) Estimated Hrs Per Day: 1.5 hours per day Patient and/or Family Agrees t: Yes Time Time In: 0800 Time Out: 0900 DATE: Sep 27, 2022 Total Billed Treatment Time: 60 Total Billed Treatment 1 visit GT x 2 EX x 1 FA x 1 VINICIUS BLANDON MEDICAL SALES Sep 27, 2022 11:12
[2022-09-27] MEDS: diphenhydrAMINE 2% 30 GM CR (ALLERGY CREAM) TOP PRN ×2 (11:14→16:16)
--- NOTE | 2022-09-27 11:21 | Occupational Ther Daily Note ---
OT Current Status-Daily Note Subjective Pt standing at EOB, agreeable to OT Tx. OT educated pt on safety of using call light to prevent falls, he verbalized understanding. Pt easily distracted with stories, he believe there are hidden cameras and LED lights in his [place]illips in his apartment. He believes this is his landlord trying to catch him doing meth. Pt required redirection to tasks. Mental Status/Objective Patient Orientation: Normal For Age ADL-Treatment Therapy Code Descriptions/Definitions Functional [place] Measure: 0=Not Assessed/NA 4=Minimal Assistance 1=Total Assistance 5=Supervision or Setup 2=Maximal Assistance 6=Modified [place] 3=Moderate Assistance 7=Complete IndependenceSCALE: Activities may be completed with or without assistive devices. 1-Yfjzufcaww-kswsbzm completes the activity by him/herself with no assistance from a helper. 5-Set-up or Clean-up Assistance-helper sets up or cleans up; patient completes activity. [place] assists only prior to or following the activity. 4-Supervision or Touching Assistance-helper provides verbal cues and/or touching/steadying and/or contact guard assistance as patient completes activity. Assistance may be provided throughout the activity or intermittently. 3-Partial/Moderate Assistance-helper does LESS THAN HALF the effort. [place] lifts, holds or supports trunk or limbs, but provides less than half the effort. 2-Substantial/Maximal Assistance-helper does MORE THAN HALF the effort. [place] lifts or holds trunk or limbs and provides more than half the effort. 5-Wmfpfmsge-awhigd does ALL the effort. Patient does none of the effort to complete the activity. Or, the assistance of 2 or more helpers is required for the patient to complete the activity. If activity was not attempted, code reason: 7-Patient Refused. 9-Not Applicable-not attempted and the patient did not perform the activity before the current illness, exacerbation or injury. 10-Not Attempted due to Environmental Limitations-(lack of equipment, weather restraints, etc.). 88-Not Attempted due to Medical Conditions or Safety Concerns. Eating (QC): 6 (IND per pt report.) Oral Hygiene (QC): 6 (Standing at sink.) Shower/Bathe Self (QC): 4 (Supervision) Upper Body Dressing (QC): 6 Lower Body Dressing (QC): 4 (Supervision) On/Off Footwear: 5 Toileting Hygiene (QC): 4 (Supervision) Supervision required due to impulsivity and safety concerns. Other Treatment Pt standing at EOB, OT provided education on safety precautions of using call light. He verbalized understanding. Pt used FWW to transfer into bathroom and onto toilet, pt completed toileting and doffed clothes, then transferred to SC. Pt completed shower, donned clothes, then stood at sink for grooming tasks. Pt used FWW to perform functional mobility to therapy gym, SBA. OT tx focused on increasing BUE strength and activity tolerance. Pt completed x15 mins on arm bike (5 mins BUE but increased L shoulder pain, 5 mins RUE only, then 5 mins BUEs). Frequent rest breaks required, and pt easily distracted throughout task requiring frequent redirection Pt used FWW to return to his room, SBA, transferring to recliner. Post tx, pt in recliner, call light in reach and all needs met. Chair alarm activated. Education OT Patient Education: Correct positioning, Energy conservation, Modified ADL techniques, Progress toward Goal/Update tx plan, Purpose of tx/functional activities, Rehab process Teaching Recipient: Patient Teaching Methods: Discussion Response to Teaching: Verbalize Understanding OT Short Term Goals Short Term Goals Time Frame: Oct 01, 2022 Shower/bathe self: 5 Upper body dressin Lower body dressin Putting on/taking off footwear: 5 OT [facility] Goals [facility] Goals Time Frame: Oct 15, 2022 Acute change in mental status: 0 Inattention: 0 Disorganized thinkin Altered level of consciousness: 0 Eating (QC): 6 Oral Hygiene (QC): 6 Toileting Hygiene (QC): 6 Shower/Bathe Self (QC): 6 Upper Body Dressing (QC): 6 Lower Body Dressing (QC): 6 On/Off Footwear (QC): 6 Additional Goals: 1-Demonstrate ADL Tasks, 2-Verbalize Understanding, 3- ImproveStrength/Sivan 1=Demonstrate adherence to instructed precautions during ADL tasks. 2=Patient will verbalize/demonstrate understanding of assistive devices/modifications for ADL. 3=Patient will improve strength/tolerance for activity to enable patient to perform ADL's. OT Education/Plan Problem List/Assessment Assessment: Decreased Activ Tolerance, Decreased Safety Aware, Decreased UE Strength, Impaired Funct Balance, Impaired I ADL's, Impaired Self-Care Skills Discharge Recommendations Plan/Recommendations: Continue POC Treatment Plan/Plan of Care Patient would benefit from OT for education, treatment and training to promote independence in ADL's, mobility, safety and/or upper extremity function for ADL's. Plan of Care: ADL Retraining, Functional Mobility, Group Exercise/Act as Ind, UE Funct Exercise/Act Treatment Duration: Oct 15, 2022 Frequency: At least 5 of 7 days/Wk (IRF) Estimated Hrs Per Day: 1.5 hours per day Agreement: Yes Rehab Potential: Good Time Start Time: 10:30 Stop Time: 12:00 DATE: Sep 27, 2022 Total Time Billed (hr/min): 90 Billed Treatment Time 1, ADL4 (65'), EX 2 (25') HERMINIO DE JESUS OT Sep 27, 2022 11:21
[2022-09-27] MEDS: diphenhydrAMINE 25 MG TAB (BENADRYL) PO PRN ×3 (12:18→20:38)
--- NOTE | 2022-09-27 13:32 | Physical Therapy Daily Note ---
PT Daily Note-Current Subjective Pt found seated on edge of bed pre-treatment. Agreed to PT. States he has taken pain medication so he is not having a lot of pain at the moment. Reports that his mattress at home is below knee level but he does not think he will need a higher bed frame to get in and out of bed. Pain Section J - Health Conditions 1. Rarely or not at all 2. Occasionally 3. Frequently 4. Almost constantly 8. Unable to answer Pain Effect on Sleep: 3 (has to be in partial (R) sidelying or on back to sleep) Pain Interference with Therapy: 4 Pain Interference w/Day-to-Day: 4 Mental Status Patient Orientation: Person, Place Transfers SCALE: Activities may be completed with or without assistive devices. 9-Fjatcftimj-zwruqqx completes the activity by him/herself with no assistance from a helper. 5-Set-up or Clean-up Assistance-helper sets up or cleans up; patient completes activity. [place] assists only prior to or following the activity. 4-Supervision or Touching Assistance-helper provides verbal cues and/or touching/steadying and/or contact guard assistance as patient completes activity. Assistance may be provided throughout the activity or intermittently. 3-Partial/Moderate Assistance-helper does LESS THAN HALF the effort. [place] lifts, holds or supports trunk or limbs, but provides less than half the effort. 2-Substantial/Maximal Assistance-helper does MORE THAN HALF the effort. [place] lifts or holds trunk or limbs and provides more than half the effort. 8-Xwvzzevpy-gdcnhh does ALL the effort. Patient does none of the effort to complete the activity. Or, the assistance of 2 or more helpers is required for the patient to complete the activity. If activity was not attempted, code reason: 7-Patient Refused. 9-Not Applicable-not attempted and the patient did not perform the activity before the current illness, exacerbation or injury. 10-Not Attempted due to Environmental Limitations-(lack of equipment, weather restraints, etc.). 88-Not Attempted due to Medical Conditions or Safety Concerns. Sit to Stand (QC): 4 Pt SBA for safety due to increased pain with transfers. Weight Bearing Weight Bearing/Tolerated Weight Bearing/Tolerated Gait Training Does the Patient Walk?: Yes Distance: 500, 100 Walk 10 feet (QC): 4 Walk 50 ft with 2 Turns(QC): 4 Walk 150 ft (QC): 4 Gait Assistive Device: FWW Pt uses FWW and required SBA with gait training. Ambulated 600 feet total. Displays steady gait pattern with no loss of balance. No reports of increased pain. Treatments Standing exercises: Side-stepping at // x 3 trips Backwards ambulation at // x 3 trips Heel/toe raises x 10 Hip add x 10 Assessment Current Status: Good Progress Pt displays good muscle strength and endurance throughout visit. Demonstrated signs of increased pain while completing backwards ambulation. Continue to progress pt as tolerated per POC to improve strength, endurance, and decrease pain. PT Stringed Instrument Tuner Goals Stringed Instrument Tuner Goals PT Prison Goals Time Frame: Oct 14, 2022 Roll Left & Right (QC): 6 Sit to Lying (QC): 6 Lying-Sitting on Side/Bed(QC): 6 Sit to Stand (QC): 6 Chair/Zqp-du-Mwxao Xfer(QC): 6 (with FWW) Toilet Transfer (QC): 6 Car Transfer (QC): 5 Does the Patient Walk: Yes Walk 10 feet (QC): 6 (with FWW) Walk 50ft with 2 Turns (QC): 6 (with FWW) Walk 150 ft (QC): 6 (with FWW) Walking 10ft on Uneven Surface: 6 (with FWW) 1 Step (curb) (QC): 6 (with FWW) 4 Steps (QC): 6 (with (B) rails) 12 Steps (QC): 5 (with (B) rails) Picking up an Object (QC): 6 (with farm equipment mechanic) Does the Pt use WC or Scooter?: No Wheel 50 feet with 2 turns (QC: 9 Type: N/A Wheel 150 feet: 9 Type: N/A PT Plan Treatment/Plan Treatment Plan: Continue Plan of Care Treatment Plan: Bed Mobility, Education, Functional Activity Sivan, Functional Strength, Group Therapy, Gait, Safety, Therapeutic Exercise, Transfers, Other (IFC/TENS prn) Treatment Duration: Oct 14, 2022 Frequency: At least 5 of 7 days/Wk (IRF) Estimated Hrs Per Day: 1.5 hours per day Patient and/or Family Agrees t: Yes Time Time In: 1254 Time Out: 1324 DATE: Sep 27, 2022 Total Billed Treatment Time: 30 Total Billed Treatment 1 visit GT x 1 EX x 1 MAJOR,VINICIUS DESCRIPTIVE CATALOG LIBRARIAN Sep 27, 2022 13:32
--- NOTE | 2022-09-27 14:45 | Physical Therapy Progress Note ---
Therapy Progress Note Patient will required a FWW upon discharge. Patient is unable to safely ambulate and complete activities of daily living with use of a quad cane due to balance deficits caused by pelvic pain. The patient has demonstrated ability to safely ambulate with use of a FWW without loss of balance or other safety concerns. Patient's mobility deficits will be sufficiently resolved with use of a FWW. VINICIUS BLANDON TRAVERTINE INSTALLER Sep 27, 2022 14:45
[2022-09-27] MEDS: ENOXAPARIN 40 MG/0.4 ML (LOVENOX) SYR SC SCH (17:05)
[2022-09-27 20:32] VITALS: BP 125/64
[2022-09-27] MEDS: morphine IMMEDIATE RELEASE 15 MG TABLET PO PRN (20:38)
[2022-09-28] MEDS: diphenhydrAMINE 25 MG TAB (BENADRYL) PO PRN ×5 (00:25→20:19)
--- NOTE | 2022-09-28 06:13 | PM&R Progress Note ---
Subjective HPI/CC On Admission Date Seen by Provider: Sep 28, 2022 Time Seen by Provider: 08:30 Subjective/Events-last exam 09/28/2022: No major issues Ibuprofen is requested BM X 2 No falls 09/27/2022: Much improved Back rash improved No issues 09/26/2022: No major issues Back rash improved Pain controlled 09/25/2022: No major issues Back rash so will start Benadryl cream to back No new pain 09/24/2022: Much improved Pain improved Asked about Dilaudid and I explained that is only for post op pain and MS Contin was added to help him with his pain No issues Review of Systems General: Fatigue, Malaise Objective Exam Vital Signs Vital Signs Date Time Temp Pulse Resp B/P (MAP) Pulse Ox O2 Delivery O2 Flow Rate FiO2 09/28/22 09:00 Room Air 09/28/22 07:39 36.1 55 14 120/64 (82) 91 Capillary Refill : General Appearance: No Apparent Distress, WD/WN HEENT: PERRL/EOMI, Normal ENT Inspection, Pharynx Normal Neck: Full Range of Motion, Normal Inspection, Non Tender, Supple, Carotid Bruit Respiratory: Chest Non Tender, Lungs Clear, Normal Breath Sounds, No Accessory Muscle Use, No Respiratory Distress Cardiovascular: Regular Rate, Rhythm, No Edema, No Gallop, No JVD, No Murmur, Normal Peripheral Pulses Gastrointestinal: Normal Bowel Sounds, No Organomegaly, No Pulsatile Mass, Non Tender, Soft Back: Normal Inspection, No CVA Tenderness, Decreased Range of Motion Extremity: Normal Capillary Refill, Normal Inspection, Non Tender, No Calf Tenderness, No Pedal Edema, Other Neurologic/Psychiatric: Alert, Oriented x3, No Motor/Sensory Deficits, Normal Mood/Affect Skin: Normal Color, Warm/Dry Lymphatic: No Adenopathy Results/Procedures Lab Patient resulted labs reviewed. FIM Transfers Therapy Code Descriptions/Definitions Functional [place] Measure: 0=Not Assessed/NA 4=Minimal Assistance 1=Total Assistance 5=Supervision or Setup 2=Maximal Assistance 6=Modified [place] 3=Moderate Assistance 7=Complete IndependenceSCALE: Activities may be completed with or without assistive devices. 7-Qklicgttkz-mqnkdks completes the activity by him/herself with no assistance from a helper. 5-Set-up or Clean-up Assistance-helper sets up or cleans up; patient completes activity. [place] assists only prior to or following the activity. 4-Supervision or Touching Assistance-helper provides verbal cues and/or touching/steadying and/or contact guard assistance as patient completes activity. Assistance may be provided throughout the activity or intermittently. 3-Partial/Moderate Assistance-helper does LESS THAN HALF the effort. [place] lifts, holds or supports trunk or limbs, but provides less than half the effort. 2-Substantial/Maximal Assistance-helper does MORE THAN HALF the effort. [place] lifts or holds trunk or limbs and provides more than half the effort. 5-Gjtepzyft-mmtoam does ALL the effort. Patient does none of the effort to complete the activity. Or, the assistance of 2 or more helpers is required for the patient to complete the activity. If activity was not attempted, code reason: 7-Patient Refused. 9-Not Applicable-not attempted and the patient did not perform the activity before the current illness, exacerbation or injury. 10-Not Attempted due to Environmental Limitations-(lack of equipment, weather restraints, etc.). 88-Not Attempted due to Medical Conditions or Safety Concerns. Roll Left to Right (QC): 4 (set-up and cues for bedrail due to pain) Sit to Lying (QC): 4 Sit to Stand (QC): 4 Chair/But-hi-Uyacp Xfer(QC): 3 (Min-CGA with FWW) Car Transfer (QC): 3 (Min (A) to lift LE's into car- painful transition.) Gait Training Does the Patient Walk?: Yes Distance: 500, 100 Walk 10 feet (QC): 4 Walk 50 ft with 2 Turns(QC): 4 Walk 150 ft (QC): 4 Walking 10ft/uneven surface-QC: 3 (min (A) with FWW and cues for walker placement) Gait Persons Needed: 1 Gait Assistive Device: FWW Wheelchair Training Does the Pt Use a Wheelchair?: No Wheel 50 ft with 2 turns (QC): 9 Wheel 150 ft (QC): 9 Stair Training Stair Training: Handrails/: 2 handrails #of Steps: 8 1 Step (curb) (QC): 4 4 Steps (QC): 4 12 Steps (QC): 88 (not safe due to increased pain with 4 steps) Stairs: Pattern: Step to Balance Picking up an Object (QC): 6 (with stenotypist. Unableto pick pen up floor without stenotypist - reaching down/forward caused increased pelvis pain.) ADL-Treatment Eating (QC): 6 (IND per pt report.) Oral Hygiene (QC): 6 (Standing at sink.) Shower/Bathe Self (QC): 4 (Supervision) Upper Body Dressing (QC): 6 Lower Body Dressing (QC): 4 (Supervision) On/Off Footwear (QC): 5 Toileting Hygiene (QC): 4 (Supervision) Assessment/Plan Assessment and Plan Assess & Plan/Chief Complaint Assessment: Fracture of left Superior & inferior pubic ramus Left impacted sacral fracture HTN Hx Mitral valve prolapse Hx afib Multiple pain med allergies Constipation Plan: Pain control PT OT Home meds Constipation treatment 09/24/2022: BM+ Pain control 09/25/2022: No pain reported Checked meds and labs 09/26/2022: Monitor rash Pain control 09/27/2022: Bowel regimen to intensify 09/28/2022: Monitor closely (1) Pelvic fracture TYREL FREIRE DO Sep 28, 2022 06:13
[2022-09-28 07:39] VITALS: BP 120/64
[2022-09-28] MEDS: ASPIRIN 81 MG CHEW (CHILDREN'S ASA) PO SCH (07:45)
[2022-09-28] MEDS: VERAPAMIL SR 180 MG (CALAN SR) TAB PO SCH ×2 (07:45→20:20)
[2022-09-28] MEDS: NICOTINE 21 MG (NICODERM) PATCH TD SCH (07:45)
[2022-09-28] MEDS: SENNA W/DOCUSATE (SENOKOT S) TABLET PO SCH ×2 (07:45→20:19)
[2022-09-28] MEDS: NICOTINE PATCH REMOVAL TP SCH (07:45)
[2022-09-28] MEDS: MICONAZOLE 2% POWDER (DESENEX AF) 90 GM TOP SCH ×2 (07:46→20:22)
[2022-09-28] MEDS: DOCUSATE SODIUM 100 MG (COLACE) CAP PO SCH ×2 (07:46→20:20)
[2022-09-28] MEDS: NYSTATIN CREAM (MYCOSTATIN) 30 GM TUBE TP SCH ×3 (07:48→20:22)
[2022-09-28] MEDS: morphine ER 30 MG (MS CONTIN) TAB PO SCH ×2 (08:05→20:20)
[2022-09-28] MEDS: polyethylene glycoL POWDER 17 GM (MIRALAX) PACK PO SCH ×2 (08:06→20:22)
--- NOTE | 2022-09-28 10:54 | Occupational Ther Daily Note ---
OT Current Status-Daily Note Subjective Pt up EOB, agreeable to OT Tx with focus on ADLS. ADL-Treatment Therapy Code Descriptions/Definitions Functional [place] Measure: 0=Not Assessed/NA 4=Minimal Assistance 1=Total Assistance 5=Supervision or Setup 2=Maximal Assistance 6=Modified [place] 3=Moderate Assistance 7=Complete IndependenceSCALE: Activities may be completed with or without assistive devices. 5-Ibtttugnvm-bmeoyun completes the activity by him/herself with no assistance f rom a helper. 5-Set-up or Clean-up Assistance-helper sets up or cleans up; patient completes activity. [place] assists only prior to or following the activity. 4-Supervision or Touching Assistance-helper provides verbal cues and/or touching/steadying and/or contact guard assistance as patient completes activity. Assistance may be provided throughout the activity or intermittently. 3-Partial/Moderate Assistance-helper does LESS THAN HALF the effort. [place] lifts, holds or supports trunk or limbs, but provides less than half the effort. 2-Substantial/Maximal Assistance-helper does MORE THAN HALF the effort. [place] lifts or holds trunk or limbs and provides more than half the effort. 1-Vaarurslx-jhykpl does ALL the effort. Patient does none of the effort to complete the activity. Or, the assistance of 2 or more helpers is required for the patient to complete the activity. If activity was not attempted, code reason: 7-Patient Refused. 9-Not Applicable-not attempted and the patient did not perform the activity before the current illness, exacerbation or injury. 10-Not Attempted due to Environmental Limitations-(lack of equipment, weather restraints, etc.). 88-Not Attempted due to Medical Conditions or Safety Concerns. Eating (QC): 6 Oral Hygiene (QC): 6 Shower/Bathe Self (QC): 6 Upper Body Dressing (QC): 6 Lower Body Dressing (QC): 6 On/Off Footwear: 6 Toileting Hygiene (QC): 6 Toilet Transfer (QC): 6 Other Treatment Pt at EOB, used FWW to transfer into bathroom. Pt stood at sink to complete grooming tasks, then transferred to MO. Pt completed dressing and showering. Pt able to complete tasks without assistance. Pt used FWW to perform functional mobility to therapy gym. OT tx focused on increasing BUE strength and activity tolerance. Pt completed arm bike x15 mins, 15 Watt resistance. Pt performed functional mobility around ARU common area/2nd floor, IND, then back to his room. Pt stood at toilet to urinate, then transferred to EOB. Post tx, pt at EOB, call light in reach and all needs met. Education OT Patient Education: Correct positioning, Energy conservation, Modified ADL techniques, Progress toward Goal/Update tx plan, Purpose of tx/functional activities, Rehab process Teaching Recipient: Patient Teaching Methods: Discussion Response to Teaching: Verbalize Understanding OT Short Term Goals Short Term Goals Time Frame: Oct 01, 2022 Shower/bathe self: 5 Upper body dressin Lower body dressin Putting on/taking off footwear: 5 OT Mcc Goals Tram Inspector Goals Time Frame: Oct 15, 2022 Acute change in mental status: 0 Inattention: 0 Disorganized thinkin Altered level of consciousness: 0 Eating (QC): 6 Oral Hygiene (QC): 6 Toileting Hygiene (QC): 6 Shower/Bathe Self (QC): 6 Upper Body Dressing (QC): 6 Lower Body Dressing (QC): 6 On/Off Footwear (QC): 6 Additional Goals: 1-Demonstrate ADL Tasks, 2-Verbalize Understanding, 3- ImproveStrength/Sivan 1=Demonstrate adherence to instructed precautions during ADL tasks. 2=Patient will verbalize/demonstrate understanding of assistive devices/modifications for ADL. 3=Patient will improve strength/tolerance for activity to enable patient to perform ADL's. OT Education/Plan Problem List/Assessment Assessment: Decreased Activ Tolerance, Decreased Safety Aware, Decreased UE Strength, Impaired I ADL's Discharge Recommendations Plan/Recommendations: Continue POC Treatment Plan/Plan of Care Patient would benefit from OT for education, treatment and training to promote independence in ADL's, mobility, safety and/or upper extremity function for ADL's. Plan of Care: ADL Retraining, Functional Mobility, Group Exercise/Act as Ind, UE Funct Exercise/Act Treatment Duration: Oct 15, 2022 Frequency: At least 5 of 7 days/Wk (IRF) Estimated Hrs Per Day: 1.5 hours per day Agreement: Yes Rehab Potential: Good Time Start Time: 10:30 Stop Time: 12:00 DATE: Sep 28, 2022 Total Time Billed (hr/min): 90 Billed Treatment Time 1, ADL 4 (60'), EX (20'), FA (10') HERMINIO DE JESUS OT Sep 28, 2022 10:54
--- NOTE | 2022-09-28 11:20 | Physical Therapy Daily Note ---
PT Daily Note-Current Subjective Pt found seated on edge of bed upon entry. Agreed to PT. Reports 7/10 pain during ambulation in pelvic region. Pain Section J - Health Conditions 1. Rarely or not at all 2. Occasionally 3. Frequently 4. Almost constantly 8. Unable to answer Pain Effect on Sleep: 3 (has to be in partial (R) sidelying or on back to sleep) Pain Interference with Therapy: 4 Pain Interference w/Day-to-Day: 4 Mental Status Patient Orientation: Person, Place Transfers SCALE: Activities may be completed with or without assistive devices. 7-Speiilycel-dduaixr completes the activity by him/herself with no assistance from a helper. 5-Set-up or Clean-up Assistance-helper sets up or cleans up; patient completes activity. [place] assists only prior to or following the activity. 4-Supervision or Touching Assistance-helper provides verbal cues and/or touching/steadying and/or contact guard assistance as patient completes activity. Assistance may be provided throughout the activity or intermittently. 3-Partial/Moderate Assistance-helper does LESS THAN HALF the effort. [place] lifts, holds or supports trunk or limbs, but provides less than half the effort. 2-Substantial/Maximal Assistance-helper does MORE THAN HALF the effort. [place] lifts or holds trunk or limbs and provides more than half the effort. 9-Ztsckrpju-bpamnb does ALL the effort. Patient does none of the effort to complete the activity. Or, the assistance of 2 or more helpers is required for the patient to complete the activity. If activity was not attempted, code reason: 7-Patient Refused. 9-Not Applicable-not attempted and the patient did not perform the activity before the current illness, exacerbation or injury. 10-Not Attempted due to Environmental Limitations-(lack of equipment, weather restraints, etc.). 88-Not Attempted due to Medical Conditions or Safety Concerns. Sit to Lying (QC): 6 Lying to Sitting/Side of Bed(Q: 6 Sit to Stand (QC): 6 Pt independent with all completed transfers. Pt completes sit to ly and ly to sit transfers independently from an approximately 15 inch mattress to simulate home environment. Weight Bearing Weight Bearing/Tolerated Weight Bearing/Tolerated Gait Training Does the Patient Walk?: Yes Distance: 100, 500, 200 Walk 10 feet (QC): 6 Walk 50 ft with 2 Turns(QC): 6 Walk 150 ft (QC): 6 Gait Persons Needed: 1 Gait Assistive Device: FWW Pt independent with ambulation. Ambulates up 500 feet before requiring a seated rest break. Displays steady gait speed with no loss of balance and no safety concerns. Offloads B hips by putting weight through hands on FWW to avoid increased pain. Treatments Standing balance: AirX NBOS x 1' AirX tandem stance x 30 seconds B Standing exercise: Hip 3-ways YTB x 10 B Marching YTB x 10 B Step-ups forward/sideways x 10 B Heel/toe raises x 10 Hamstring curls x 10 B Assessment Current Status: Good Progress Pt tolerated transfer training and therapeutic exercises well. Able to complete transfers and gait training independently. Demonstrates good muscle endurance and strength with ambulation and exercises. No loss of balance displayed with gait training. Demonstrates most difficulty completing balance training on AirX in tandem stance. Continue to progress pt as tolerated per POC to improve strength, endurance, and decrease pain. PT Custodial Goals Stereo Equipment Salesperson Goals PT Stereo Equipment Salesperson Goals Time Frame: Oct 14, 2022 Roll Left & Right (QC): 6 Sit to Lying (QC): 6 Lying-Sitting on Side/Bed(QC): 6 Sit to Stand (QC): 6 Chair/Sir-cr-Bptyy Xfer(QC): 6 (with FWW) Toilet Transfer (QC): 6 Car Transfer (QC): 5 Does the Patient Walk: Yes Walk 10 feet (QC): 6 (with FWW) Walk 50ft with 2 Turns (QC): 6 (with FWW) Walk 150 ft (QC): 6 (with FWW) Walking 10ft on Uneven Surface: 6 (with FWW) 1 Step (curb) (QC): 6 (with FWW) 4 Steps (QC): 6 (with (B) rails) 12 Steps (QC): 5 (with (B) rails) Picking up an Object (QC): 6 (with wrapper stitcher) Does the Pt use WC or Scooter?: No Wheel 50 feet with 2 turns (QC: 9 Type: N/A Wheel 150 feet: 9 Type: N/A PT Plan Treatment/Plan Treatment Plan: Continue Plan of Care Treatment Plan: Bed Mobility, Education, Functional Activity Sivan, Functional Strength, Group Therapy, Gait, Safety, Therapeutic Exercise, Transfers, Other (IFC/TENS prn) Treatment Duration: Oct 14, 2022 Frequency: At least 5 of 7 days/Wk (IRF) Estimated Hrs Per Day: 1.5 hours per day Patient and/or Family Agrees t: Yes Time Time In: 0900 Time Out: 1030 DATE: Sep 28, 2022 Total Billed Treatment Time: 90 Total Billed Treatment 1 visit FA x 1 GT x 2 EX x 3 MAJOR,VINICIUS GENERAL PRODUCTION MANAGER Sep 28, 2022 11:20
[2022-09-28] MEDS: morphine IMMEDIATE RELEASE 15 MG TABLET PO PRN ×2 (12:16→18:31)
[2022-09-28] MEDS ORDERED: IBUPROFEN 600 MG (MOTRIN) TAB PO PRN (13:30)
[2022-09-28] MEDS: ENOXAPARIN 40 MG/0.4 ML (LOVENOX) SYR SC SCH (18:23)
[2022-09-28 20:51] VITALS: BP 127/75
--- NOTE | 2022-09-29 05:01 | PM&R Progress Note ---
Subjective HPI/CC On Admission Date Seen by Provider: Sep 29, 2022 Time Seen by Provider: 11:30 Subjective/Events-last exam 09/29/2022: Doing well No pain changes DC tomorrow 09/28/2022: No major issues Ibuprofen is requested BM X 2 No falls 09/27/2022: Much improved Back rash improved No issues 09/26/2022: No major issues Back rash improved Pain controlled 09/25/2022: No major issues Back rash so will start Benadryl cream to back No new pain 09/24/2022: Much improved Pain improved Asked about Dilaudid and I explained that is only for post op pain and MS Contin was added to help him with his pain No issues Review of Systems General: Fatigue, Malaise Objective Exam Vital Signs Vital Signs Date Time Temp Pulse Resp B/P (MAP) Pulse Ox O2 Delivery O2 Flow Rate FiO2 09/29/22 20:10 Room Air 09/29/22 19:07 36.8 67 12 121/72 (88) 94 Capillary Refill : General Appearance: No Apparent Distress, WD/WN HEENT: PERRL/EOMI, Normal ENT Inspection, Pharynx Normal Neck: Full Range of Motion, Normal Inspection, Non Tender, Supple, Carotid Bruit Respiratory: Chest Non Tender, Lungs Clear, Normal Breath Sounds, No Accessory Muscle Use, No Respiratory Distress Cardiovascular: Regular Rate, Rhythm, No Edema, No Gallop, No JVD, No Murmur, Normal Peripheral Pulses Gastrointestinal: Normal Bowel Sounds, No Organomegaly, No Pulsatile Mass, Non Tender, Soft Back: Normal Inspection, No CVA Tenderness, Decreased Range of Motion Extremity: Normal Capillary Refill, Normal Inspection, Non Tender, No Calf Tenderness, No Pedal Edema, Other Neurologic/Psychiatric: Alert, Oriented x3, No Motor/Sensory Deficits, Normal Mood/Affect Skin: Normal Color, Warm/Dry Lymphatic: No Adenopathy Results/Procedures Lab Patient resulted labs reviewed. FIM Transfers Therapy Code Descriptions/Definitions Functional [place] Measure: 0=Not Assessed/NA 4=Minimal Assistance 1=Total Assistance 5=Supervision or Setup 2=Maximal Assistance 6=Modified [place] 3=Moderate Assistance 7=Complete IndependenceSCALE: Activities may be completed with or without assistive devices. 7-Hgkaqapjex-ufcucbs completes the activity by him/herself with no assistance from a helper. 5-Set-up or Clean-up Assistance-helper sets up or cleans up; patient completes activity. [place] assists only prior to or following the activity. 4-Supervision or Touching Assistance-helper provides verbal cues and/or touching/steadying and/or contact guard assistance as patient completes activity. Assistance may be provided throughout the activity or intermittently. 3-Partial/Moderate Assistance-helper does LESS THAN HALF the effort. [place] lifts, holds or supports trunk or limbs, but provides less than half the effort. 2-Substantial/Maximal Assistance-helper does MORE THAN HALF the effort. [place] lifts or holds trunk or limbs and provides more than half the effort. 4-Dxtoeoljv-xsucff does ALL the effort. Patient does none of the effort to complete the activity. Or, the assistance of 2 or more helpers is required for the patient to complete the activity. If activity was not attempted, code reason: 7-Patient Refused. 9-Not Applicable-not attempted and the patient did not perform the activity before the current illness, exacerbation or injury. 10-Not Attempted due to Environmental Limitations-(lack of equipment, weather restraints, etc.). 88-Not Attempted due to Medical Conditions or Safety Concerns. Roll Left to Right (QC): 4 (set-up and cues for bedrail due to pain) Sit to Lying (QC): 6 Sit to Stand (QC): 6 Chair/Lpd-nu-Tnyas Xfer(QC): 3 (Min-CGA with FWW) Car Transfer (QC): 3 (Min (A) to lift LE's into car- painful transition.) Gait Training Does the Patient Walk?: Yes Distance: 100, 500, 200 Walk 10 feet (QC): 6 Walk 50 ft with 2 Turns(QC): 6 Walk 150 ft (QC): 6 Walking 10ft/uneven surface-QC: 3 (min (A) with FWW and cues for walker placement) Gait Persons Needed: 1 Gait Assistive Device: FWW Wheelchair Training Does the Pt Use a Wheelchair?: No Wheel 50 ft with 2 turns (QC): 9 Wheel 150 ft (QC): 9 Stair Training Stair Training: Handrails/: 2 handrails #of Steps: 8 1 Step (curb) (QC): 4 4 Steps (QC): 4 12 Steps (QC): 88 (not safe due to increased pain with 4 steps) Stairs: Pattern: Step to Balance Picking up an Object (QC): 6 (with cashier gambling. Unableto pick pen up floor without cashier gambling - reaching down/forward caused increased pelvis pain.) ADL-Treatment Eating (QC): 6 Oral Hygiene (QC): 6 Shower/Bathe Self (QC): 6 Upper Body Dressing (QC): 6 Lower Body Dressing (QC): 6 On/Off Footwear (QC): 6 Toileting Hygiene (QC): 6 Toilet Transfer (QC): 6 Assessment/Plan Assessment and Plan Assess & Plan/Chief Complaint Assessment: Fracture of left Superior & inferior pubic ramus Left impacted sacral fracture HTN Hx Mitral valve prolapse Hx afib Multiple pain med allergies Constipation Plan: Pain control PT OT Home meds Constipation treatment 09/24/2022: BM+ Pain control 09/25/2022: No pain reported Checked meds and labs 09/26/2022: Monitor rash Pain control 09/27/2022: Bowel regimen to intensify 09/28/2022: Monitor closely 09/29/2022: DC tomorrow (1) Pelvic fracture TYREL FREIRE DO Sep 29, 2022 05:01
[2022-09-29 07:45] VITALS: BP 121/63
[2022-09-29] MEDS: VERAPAMIL SR 180 MG (CALAN SR) TAB PO SCH ×2 (08:02→20:27)
[2022-09-29] MEDS: ASPIRIN 81 MG CHEW (CHILDREN'S ASA) PO SCH (08:03)
[2022-09-29] MEDS: morphine ER 30 MG (MS CONTIN) TAB PO SCH ×2 (08:03→20:27)
[2022-09-29] MEDS: diphenhydrAMINE 25 MG TAB (BENADRYL) PO PRN ×4 (08:03→20:26)
[2022-09-29] MEDS: NICOTINE 21 MG (NICODERM) PATCH TD SCH (08:03)
[2022-09-29] MEDS: polyethylene glycoL POWDER 17 GM (MIRALAX) PACK PO SCH ×2 (08:04→19:59)
[2022-09-29] MEDS: MICONAZOLE 2% POWDER (DESENEX AF) 90 GM TOP SCH ×2 (08:04→20:28)
[2022-09-29] MEDS: DOCUSATE SODIUM 100 MG (COLACE) CAP PO SCH ×2 (08:04→20:26)
[2022-09-29] MEDS: NYSTATIN CREAM (MYCOSTATIN) 30 GM TUBE TP SCH ×3 (08:04→20:38)
[2022-09-29] MEDS: SENNA W/DOCUSATE (SENOKOT S) TABLET PO SCH ×2 (08:05→20:26)
--- NOTE | 2022-09-29 09:19 | Occupational Ther Daily Note ---
OT Current Status-Daily Note Subjective Upon OT entering room, pt reports "I'm not going to do any of that arm shit today", pt reports he was too tired after therapy yesterday and he needs to save his energy for tomorrow. OT provided education about purpose and benefit of OT to pt, encouraging pt to complete showering/ADLS, pt agreed with some encou ragement. Pt also states he doesn't have to do anything today that he doesn't want to do because he is leaving tomorrow. ADL-Treatment Therapy Code Descriptions/Definitions Functional [place] Measure: 0=Not Assessed/NA 4=Minimal Assistance 1=Total Assistance 5=Supervision or Setup 2=Maximal Assistance 6=Modified [place] 3=Moderate Assistance 7=Complete IndependenceSCALE: Activities may be completed with or without assistive devices. 1-Cukhqgzqps-uegedon completes the activity by him/herself with no assistance from a helper. 5-Set-up or Clean-up Assistance-helper sets up or cleans up; patient completes activity. [place] assists only prior to or following the activity. 4-Supervision or Touching Assistance-helper provides verbal cues and/or touching/steadying and/or contact guard assistance as patient completes activity. Assistance may be provided throughout the activity or intermittently. 3-Partial/Moderate Assistance-helper does LESS THAN HALF the effort. [place] lifts, holds or supports trunk or limbs, but provides less than half the effort. 2-Substantial/Maximal Assistance-helper does MORE THAN HALF the effort. [place] lifts or holds trunk or limbs and provides more than half the effort. 6-Udnstlrdh-itdfdi does ALL the effort. Patient does none of the effort to complete the activity. Or, the assistance of 2 or more helpers is required for the patient to complete the activity. If activity was not attempted, code reason: 7-Patient Refused. 9-Not Applicable-not attempted and the patient did not perform the activity before the current illness, exacerbation or injury. 10-Not Attempted due to Environmental Limitations-(lack of equipment, weather restraints, etc.). 88-Not Attempted due to Medical Conditions or Safety Concerns. Eating (QC): 6 Oral Hygiene (QC): 6 Shower/Bathe Self (QC): 6 Upper Body Dressing (QC): 6 Lower Body Dressing (QC): 6 On/Off Footwear: 6 Toileting Hygiene (QC): 6 Toilet Transfer (QC): 6 Other Treatment Pt at EOB, used FWW to transfer into bathroom. Pt completed ADLS, IND, including showering, dressing, grooming tasks, toileting. Pt argumentative and accusatory with therapist after tasks, stating he isn't doing anything else today. OT attempted to provide therapeutic communication and listening to pt, without asking him to do anything else, but pt kept talking loudly over therapist and wasn't listening. Pt threatened to write the [place] [facility] and tell them how bad the therapists are at this hospital, that when a pt is in pain, the therapists keep pushing and pushing causing more pain. Pt states if we found him a ride today, that he would leave. Pt unable to be reasoned with. Pt seated EOB at end of tx, call light in reach and all needs met. OT notified pt's care team about pt's behavior and statements. Education OT Patient Education: Correct positioning, Energy conservation, Modified ADL techniques, Progress toward Goal/Update tx plan, Purpose of tx/functional activities, Rehab process Teaching Recipient: Patient Teaching Methods: Discussion Response to Teaching: Verbalize Understanding BIMS CAM BIMS Expression of Ideas and Wants: Without Difficulty Understanding Verbal Content: Understands Brief Interview/Mental Status: Yes IRF [place] BIMS: IRF [place] BIMS Response (Comments) Value Repitition of Three Words Three 3 Recalls Socks Yes, No Cue Required 2 Recalls Blue Yes, No Cue Required 2 Recalls Bed Yes, No Cue Required 2 Year Correct 3 Month Accurate Within 5 Days 2 Day Correct 1 Total 15 CAM Mental Status Change/Baseline: 0 Inattention: 0 Disorganized thinkin Altered level of consciousness: 0 OT Short Term Goals Short Term Goals Time Frame: Oct 01, 2022 Shower/bathe self: 5 Upper body dressin Lower body dressin Putting on/taking off footwear: 5 OT Correction Goals Correction Goals Time Frame: Oct 15, 2022 Acute change in mental status: 0 Inattention: 0 Disorganized thinkin Altered level of consciousness: 0 Eating (QC): 6 (met) Oral Hygiene (QC): 6 (met) Toileting Hygiene (QC): 6 (met) Shower/Bathe Self (QC): 6 (met) Upper Body Dressing (QC): 6 (met) Lower Body Dressing (QC): 6 (met) On/Off Footwear (QC): 6 (met) Additional Goals: 1-Demonstrate ADL Tasks, 2-Verbalize Understanding, 3- ImproveStrength/Sivan 1=Demonstrate adherence to instructed precautions during ADL tasks. 2=Patient will verbalize/demonstrate understanding of assistive devices/modifications for ADL. 3=Patient will improve strength/tolerance for activity to enable patient to perform ADL's. OT Education/Plan Problem List/Assessment Assessment: Decreased Activ Tolerance, Decreased UE Strength, Impaired I ADL's Discharge Recommendations Plan/Recommendations: Continue POC Treatment Plan/Plan of Care Patient would benefit from OT for education, treatment and training to promote independence in ADL's, mobility, safety and/or upper extremity function for ADL's. Plan of Care: ADL Retraining, Functional Mobility, Group Exercise/Act as Ind, UE Funct Exercise/Act Treatment Duration: Oct 15, 2022 Frequency: At least 5 of 7 days/Wk (IRF) Estimated Hrs Per Day: 1.5 hours per day Agreement: Yes Rehab Potential: Good Time Start Time: 09:00 Stop Time: 10:00 DATE: Sep 29, 2022 Total Time Billed (hr/min): 60 Billed Treatment Time 1, ADL 4 HERMINIO DE JESUS OT Sep 29, 2022 09:18
[2022-09-29] MEDS: NICOTINE PATCH REMOVAL TP SCH (09:29)
--- NOTE | 2022-09-29 10:17 | Physical Therapy Progress Note ---
Therapy Progress Note Therapist notified by Laser Machine Operator that the [facility] will not be able to provide a walker at D/C due to no DME provider being in-network locally. A FWW was obtained from the [facility] donation closet, cleaned, adjusted to the correct height, and delivered to the patient's room. Patient was informed that he would be taking this walker home at discharge. He verbalized understanding. Silvina Marcano PT Sep 29, 2022 10:17
[2022-09-29] MEDS: morphine IMMEDIATE RELEASE 15 MG TABLET PO PRN ×2 (12:09→18:08)
--- NOTE | 2022-09-29 13:30 | Physical Therapy Daily Note ---
PT Daily Note-Current Subjective Pt found seated on edge of bed upon entry. Reports that he does not want to do a lot of work today. States that he needs to have energy for tomorrow when he goes home. Pt then agrees to PT. Does not rate pain. Pain Section J - Health Conditions 1. Rarely or not at all 2. Occasionally 3. Frequently 4. Almost constantly 8. Unable to answer Pain Effect on Sleep: 3 (has to be in partial (R) sidelying or on back to sleep) Pain Interference with Therapy: 4 Pain Interference w/Day-to-Day: 4 Mental Status Patient Orientation: Person, Place Transfers SCALE: Activities may be completed with or without assistive devices. 0-Ylnbqpukgc-oahijro completes the activity by him/herself with no assistance from a helper. 5-Set-up or Clean-up Assistance-helper sets up or cleans up; patient completes activity. [place] assists only prior to or following the activity. 4-Supervision or Touching Assistance-helper provides verbal cues and/or touching/steadying and/or contact guard assistance as patient completes activity. Assistance may be provided throughout the activity or intermittently. 3-Partial/Moderate Assistance-helper does LESS THAN HALF the effort. [place] lifts, holds or supports trunk or limbs, but provides less than half the effort. 2-Substantial/Maximal Assistance-helper does MORE THAN HALF the effort. [place] lifts or holds trunk or limbs and provides more than half the effort. 3-Uayjgtywf-etpfwx does ALL the effort. Patient does none of the effort to complete the activity. Or, the assistance of 2 or more helpers is required for the patient to complete the activity. If activity was not attempted, code reason: 7-Patient Refused. 9-Not Applicable-not attempted and the patient did not perform the activity before the current illness, exacerbation or injury. 10-Not Attempted due to Environmental Limitations-(lack of equipment, weather restraints, etc.). 88-Not Attempted due to Medical Conditions or Safety Concerns. Roll Left & Right (QC): 6 Sit to Lying (QC): 6 Lying to Sitting/Side of Bed(Q: 6 Sit to Stand (QC): 6 Chair/Zju-lo-Hbngw Xfer(QC): 6 Toilet Transfer (QC): 6 Car Transfer (QC): 4 Pt supervision assistance with car transfers for safety due to pain displayed with transfer. Independent with all other completed transfers. Weight Bearing Weight Bearing/Tolerated Weight Bearing/Tolerated Gait Training Does the Patient Walk?: Yes Distance: 150, 150 Walk 10 feet (QC): 6 Walk 50 ft with 2 Turns(QC): 6 Walk 150 ft (QC): 6 Walking 10ft/uneven surface-QC: 6 Gait Persons Needed: 1 Gait Assistive Device: FWW Pt independent with gait training using FWW. Ambulated 300 feet total on flat ground and 10 feet on an uneven surface. Displays steady gait pattern with no loss of balance. Stair Training Stair Training: Handrails/: 1 handrail, uses walker #of Steps: 8 1 Step (curb) (QC): 6 4 Steps (QC): 6 12 Steps (QC): 07 Stairs: Pattern: Step to Pt ascended/descended 8 steps total using step to pattern. Able to fold and carry FWW up/down steps while placing other hand on handrail. No loss of balance displayed. Pt refused to attempt 12 steps due to increased pain. Balance Picking up an Object (QC): 6 Treatments TU.2 seconds Rudolph Balance Scale: 49/56 Assessment Current Status: Good Progress Pt demonstrates good tolerance to transfer training throughout visit. RUDOLPH and TUG test scores have improved since 09/23/22. Pt displays good muscle strength and endurance throughout visit. Continue to progress pt per POC to improve strength, endurance, and decrease pain. PT Shelter Goals Shelter Goals PT Shelter Goals Time Frame: Oct 14, 2022 Roll Left & Right (QC): 6 Sit to Lying (QC): 6 Lying-Sitting on Side/Bed(QC): 6 Sit to Stand (QC): 6 Chair/Vma-vt-Kmqvq Xfer(QC): 6 (with FWW) Toilet Transfer (QC): 6 Car Transfer (QC): 5 Does the Patient Walk: Yes Walk 10 feet (QC): 6 (with FWW) Walk 50ft with 2 Turns (QC): 6 (with FWW) Walk 150 ft (QC): 6 (with FWW) Walking 10ft on Uneven Surface: 6 (with FWW) 1 Step (curb) (QC): 6 (with FWW) 4 Steps (QC): 6 (with (B) rails) 12 Steps (QC): 5 (with (B) rails) Picking up an Object (QC): 6 (with solutions specialist) Does the Pt use WC or Scooter?: No Wheel 50 feet with 2 turns (QC: 9 Type: N/A Wheel 150 feet: 9 Type: N/A PT Plan Treatment/Plan Treatment Plan: Continue Plan of Care Treatment Plan: Bed Mobility, Education, Functional Activity Sivan, Functional Strength, Group Therapy, Gait, Safety, Therapeutic Exercise, Transfers, Other (IFC/TENS prn) Treatment Duration: Oct 14, 2022 Frequency: At least 5 of 7 days/Wk (IRF) Estimated Hrs Per Day: 1.5 hours per day Patient and/or Family Agrees t: Yes Time Time In: 0800 Time Out: 0900 DATE: Sep 29, 2022 Total Billed Treatment Time: 60 Total Billed Treatment 1 visit FA x 3 GT x 1 VINICIUS BLANDON PTA Sep 29, 2022 13:30
--- NOTE | 2022-09-29 13:38 | Occupational Ther Daily Note ---
OT Current Status-Daily Note Subjective Pt up EOB, agreeable to OT Tx. Pt states he feels better than this AM. ADL-Treatment Therapy Code Descriptions/Definitions Functional [place] Measure: 0=Not Assessed/NA 4=Minimal Assistance 1=Total Assistance 5=Supervision or Setup 2=Maximal Assistance 6=Modified [place] 3=Moderate Assistance 7=Complete IndependenceSCALE: Activities may be completed with or without assistive devices. 8-Cmejsrszfj-tocnaeo completes the activity by him/herself with no assistance from a helper. 5-Set-up or Clean-up Assistance-helper sets up or cleans up; patient completes activity. [place] assists only prior to or following the activity. 4-Supervision or Touching Assistance-helper provides verbal cues and/or touching/steadying and/or contact guard assistance as patient completes activity. Assistance may be provided throughout the activity or intermittently. 3-Partial/Moderate Assistance-helper does LESS THAN HALF the effort. [place] lifts, holds or supports trunk or limbs, but provides less than half the effort. 2-Substantial/Maximal Assistance-helper does MORE THAN HALF the effort. [place] lifts or holds trunk or limbs and provides more than half the effort. 3-Axnltmlhf-mxkxvl does ALL the effort. Patient does none of the effort to complete the activity. Or, the assistance of 2 or more helpers is required for the patient to complete the activity. If activity was not attempted, code reason: 7-Patient Refused. 9-Not Applicable-not attempted and the patient did not perform the activity before the current illness, exacerbation or injury. 10-Not Attempted due to Environmental Limitations-(lack of equipment, weather restraints, etc.). 88-Not Attempted due to Medical Conditions or Safety Concerns. Toileting Hygiene (QC): 6 Toilet Transfer (QC): 6 Other Treatment Pt in room, requests to perform functional mobility around ARU Common area using FWW, IND. Pt requests to use bathroom, returning to his room to complete toileting IND. Pt went to therapy gym, in order to increase BUE shoulder ROM, and decrease shoulder pain, pt completed pulleys x10 mins bilaterally. Pt used FWW to perform functional mobility around ARU common area and back to his room, IND. Post tx, pt EOB, call light in reach and all needs met. Education OT Patient Education: Correct positioning, Energy conservation, Modified ADL techniques, Progress toward Goal/Update tx plan, Purpose of tx/functional activities, Rehab process Teaching Recipient: Patient Teaching Methods: Discussion Response to Teaching: Verbalize Understanding OT Short Term Goals Short Term Goals Time Frame: Oct 01, 2022 Shower/bathe self: 5 Upper body dressin Lower body dressin Putting on/taking off footwear: 5 OT Correction Goals Correction Goals Time Frame: Oct 15, 2022 Acute change in mental status: 0 Inattention: 0 Disorganized thinkin Altered level of consciousness: 0 Eating (QC): 6 Oral Hygiene (QC): 6 Toileting Hygiene (QC): 6 Shower/Bathe Self (QC): 6 Upper Body Dressing (QC): 6 Lower Body Dressing (QC): 6 On/Off Footwear (QC): 6 Additional Goals: 1-Demonstrate ADL Tasks, 2-Verbalize Understanding, 3- ImproveStrength/Sivan 1=Demonstrate adherence to instructed precautions during ADL tasks. 2=Patient will verbalize/demonstrate understanding of assistive devices/modifications for ADL. 3=Patient will improve strength/tolerance for activity to enable patient to perform ADL's. OT Education/Plan Problem List/Assessment Assessment: Decreased Activ Tolerance, Decreased UE Strength, Impaired I ADL's Discharge Recommendations Plan/Recommendations: Continue POC Treatment Plan/Plan of Care Patient would benefit from OT for education, treatment and training to promote independence in ADL's, mobility, safety and/or upper extremity function for ADL's. Plan of Care: ADL Retraining, Functional Mobility, Group Exercise/Act as Ind, UE Funct Exercise/Act Treatment Duration: Oct 15, 2022 Frequency: At least 5 of 7 days/Wk (IRF) Estimated Hrs Per Day: 1.5 hours per day Agreement: Yes Rehab Potential: Good Time Start Time: 13:00 Stop Time: 13:30 DATE: Sep 29, 2022 Total Time Billed (hr/min): 30 Billed Treatment Time 1, ADL (10'), FA (20') HERMINIO DE JESUS OT Sep 29, 2022 13:38
--- NOTE | 2022-09-29 15:10 | Physical Therapy Daily Note ---
PT Daily Note-Current Subjective Pt found seated on edge of bed upon entry. Agreed to PT. States that he is feeling better than he did this morning and would like to go outside. Does not rate pain. Pain Section J - Health Conditions 1. Rarely or not at all 2. Occasionally 3. Frequently 4. Almost constantly 8. Unable to answer Pain Effect on Sleep: 3 (has to be in partial (R) sidelying or on back to sleep) Pain Interference with Therapy: 4 Pain Interference w/Day-to-Day: 4 Mental Status Patient Orientation: Person, Place Transfers SCALE: Activities may be completed with or without assistive devices. 4-Kuahyatwov-aiejmkv completes the activity by him/herself with no assistance from a helper. 5-Set-up or Clean-up Assistance-helper sets up or cleans up; patient completes activity. [place] assists only prior to or following the activity. 4-Supervision or Touching Assistance-helper provides verbal cues and/or touching/steadying and/or contact guard assistance as patient completes activity. Assistance may be provided throughout the activity or intermittently. 3-Partial/Moderate Assistance-helper does LESS THAN HALF the effort. [place] lifts, holds or supports trunk or limbs, but provides less than half the effort. 2-Substantial/Maximal Assistance-helper does MORE THAN HALF the effort. [place] lifts or holds trunk or limbs and provides more than half the effort. 9-Elfouadxp-likscr does ALL the effort. Patient does none of the effort to complete the activity. Or, the assistance of 2 or more helpers is required for the patient to complete the activity. If activity was not attempted, code reason: 7-Patient Refused. 9-Not Applicable-not attempted and the patient did not perform the activity before the current illness, exacerbation or injury. 10-Not Attempted due to Environmental Limitations-(lack of equipment, weather restraints, etc.). 88-Not Attempted due to Medical Conditions or Safety Concerns. Sit to Stand (QC): 6 Pt independent with sit to stand transfers. Weight Bearing Weight Bearing/Tolerated Weight Bearing/Tolerated Gait Training Does the Patient Walk?: Yes Distance: 100, 400, 100 Walk 10 feet (QC): 6 Walk 50 ft with 2 Turns(QC): 6 Walk 150 ft (QC): 6 Gait Persons Needed: 1 Gait Assistive Device: FWW Pt independent with ambulation using FWW. Ambulates 600 feet total. No loss of balance displayed throughout. Demonstrates steady gait pattern with good step length. Stair Training Stair Training: Handrails/: 1 handrail, uses walker #of Steps: 4 1 Step (curb) (QC): 6 Stairs: Pattern: Step to Pt independent with stair training using folded FWW and one handrail. Displays increased pain with stair training. No loss of balance or unsteadiness dem onstrated while ascending/descending stairs. Treatments Standing exercise at //: Side stepping x 1 trip Retrograde ambulation x 1 trip Assessment Current Status: Good Progress Pt tolerated increased gait training and functional training well. Displays good muscle strength and endurance throughout. Demonstrates increased pain with stair training. Continue to progress pt as tolerated per POC to improve strength, endurance, and decrease pain. PT Custodial Goals Packing Machine Can Feeder Goals PT Custodial Goals Time Frame: Oct 14, 2022 Roll Left & Right (QC): 6 Sit to Lying (QC): 6 Lying-Sitting on Side/Bed(QC): 6 Sit to Stand (QC): 6 Chair/Kdz-wo-Gwyvi Xfer(QC): 6 (with FWW) Toilet Transfer (QC): 6 Car Transfer (QC): 5 Does the Patient Walk: Yes Walk 10 feet (QC): 6 (with FWW) Walk 50ft with 2 Turns (QC): 6 (with FWW) Walk 150 ft (QC): 6 (with FWW) Walking 10ft on Uneven Surface: 6 (with FWW) 1 Step (curb) (QC): 6 (with FWW) 4 Steps (QC): 6 (with (B) rails) 12 Steps (QC): 5 (with (B) rails) Picking up an Object (QC): 6 (with cassandra architect) Does the Pt use WC or Scooter?: No Wheel 50 feet with 2 turns (QC: 9 Type: N/A Wheel 150 feet: 9 Type: N/A PT Plan Treatment/Plan Treatment Plan: Continue Plan of Care Treatment Plan: Bed Mobility, Education, Functional Activity Sivan, Functional Strength, Group Therapy, Gait, Safety, Therapeutic Exercise, Transfers, Other (IFC/TENS prn) Treatment Duration: Oct 14, 2022 Frequency: At least 5 of 7 days/Wk (IRF) Estimated Hrs Per Day: 1.5 hours per day Patient and/or Family Agrees t: Yes Time Time In: 1345 Time Out: 1415 DATE: Sep 29, 2022 Total Billed Treatment Time: 30 Total Billed Treatment 1 visit FA x 1 GT x 1 VINICIUS BLANDON PTA Sep 29, 2022 15:10
--- NOTE | 2022-09-29 16:14 | Therapy Team Discharge Summary ---
Therapy Discharge Summary Discharge Recommendations Date of Discharge Physical Therapy Patient seen on ARU s/p pelvic fractures from fall. At time of D/C patient was (I) with gait with a FWW for distances of 300'. Patient was able to ascend/descend 8 steps with 1 rail and folded RW as other rail independently. Patient refused to attempt 12 steps stating he was in too much pain. Patient able to pick object off floor independently and able to get down to/up from mattress on floor to simulate his bed at home. Patient given FWW from donation closet to take home. TU.2 seconds with FWW (improved 6 seconds) Yee Balance Scale: 49/56 = not at risk for falls. Roll Left to Right (QC): 6 Sit to Lying (QC): 6 Lying to Sitting/Side of Bed(Q: 6 Sit to Stand (QC): 6 Chair/Rft-oj-Pgelu Xfer(QC): 6 Toilet Transfer (QC): 6 Car Transfer (QC): 6 Does the Patient Walk: Yes Mode of Locomotion: Walk Anticipated Mode of Locomotion: Walk Walk 10 feet (QC): 6 Walk 50 ft with 2 Turns(QC): 6 Walk 150 ft (QC): 6 Walking 10ft on uneven surface: 6 Distance: 200' Gait Assistive Device: FWW Does the Pt Use a Wheelchair: No Wheel 50 ft with 2 turns (QC): 9 Wheel 150 ft (QC): 9 #of Steps: 4 1 Step (curb) (QC): 6 4 Steps (QC): 6 12 Steps (QC): 07 Walking Assistive Device: Walker Balance Sitting Static: Good Balance Sitting Dynamic: Fair Balance-Standing Static: Good Picking up an Object (QC): 6 Occupational Therapy Decreased Activ Tolerance, Decreased UE Strength, Impaired I ADL's Eating (QC): 6 Oral Hygiene (QC): 6 Shower/Bathe Self (QC): 6 Upper Body Dressing (QC): 6 Lower Body Dressing (QC): 6 On/Off Footwear (QC): 6 Toileting Hygiene (QC): 6 PT Print Manager Goals Assisted Goals PT Assisted Goals Time Frame: Oct 14, 2022 Roll Left to Right (QC): 6 Sit to Lying (QC): 6 Lying-Sitting on Side/Bed(QC): 6 Sit to Stand (QC): 6 Chair/Dot-qn-Sjhcc Xfer(QC): 6 (with FWW) Toilet/Commode Transfer (QC): 6 Car Transfer (QC): 5 Does the Patient Walk: Yes Walk 10 feet (QC): 6 (with FWW) Walk 10ft-Uneven Surface(QC): 6 (with FWW) Walk 50ft with 2 Turns (QC): 6 (with FWW) Walk 150 ft (QC): 6 (with FWW) Does the Pt use WC or Scooter?: No Wheel 50 feet with 2 turns (QC: 9 Type: N/A Wheel 150 feet: 9 Type: N/A 1 Step (curb) (QC): 6 (with FWW) 4 Steps (QC): 6 (with (B) rails) 12 Steps (QC): 5 (with (B) rails) Picking up an Object (QC): 6 (with saw boss) OT Assisted Goals Assisted Goals Time Frame: Oct 15, 2022 Acute change in mental status: 0 Inattention: 0 Disorganized thinkin Altered level of consciousness: 0 Eating (QC): 6 Oral Hygiene (QC): 6 Toileting Hygiene (QC): 6 Shower/Bathe Self (QC): 6 (met) Upper Body Dressing (QC): 6 Lower Body Dressing (QC): 6 On/Off Footwear (QC): 6 Additional Goals: 1-Demonstrate ADL Tasks, 2-Verbalize Understanding, 3- ImproveStrength/Sivan 1=Demonstrate adherence to instructed precautions during ADL tasks. 2=Patient will verbalize/demonstrate understanding of assistive devices/modifi cations for ADL. 3=Patient will improve strength/tolerance for activity to enable patient to perform ADL's. Silvina Marcano PT Sep 29, 2022 16:14
[2022-09-29] MEDS: ENOXAPARIN 40 MG/0.4 ML (LOVENOX) SYR SC SCH (17:34)
[2022-09-29] MEDS: diphenhydrAMINE 2% 30 GM CR (ALLERGY CREAM) TOP PRN (17:35)
[2022-09-29 19:07] VITALS: BP 121/72
[2022-09-30] MEDS: diphenhydrAMINE 25 MG TAB (BENADRYL) PO PRN ×3 (00:30→09:02)
[2022-09-30] MEDS: morphine IMMEDIATE RELEASE 15 MG TABLET PO PRN (04:54)
[2022-09-30] MEDS ORDERED: IBUP-1773 PO (06:17)
[2022-09-30] MEDS ORDERED: MICO90PO TOP (06:17)
[2022-09-30] MEDS ORDERED: ACET325T49 PO (06:17)
[2022-09-30] MEDS ORDERED: NYST15CR35 TP (06:17)
[2022-09-30] MEDS ORDERED: MORP-69 PO (06:17)
[2022-09-30] MEDS ORDERED: ASPI81TA64 PO (06:17)
[2022-09-30] MEDS ORDERED: DIPH25TA27 PO (06:17)
[2022-09-30] MEDS ORDERED: MORP15TA PO (06:17)
[2022-09-30] MEDS ORDERED: SENN-271 PO (06:17)
--- NOTE | 2022-09-30 06:18 | D/C HH Face to Face Order ---
D/C HH Face to Face Orders Reconcile Patient Problems Problems Reviewed?: Yes Instructions for Patient HH Patient Instructions/FollowUp: PCP 1 week Physician to follow Patient: [facility] Discharge Diet for Home: No Restrictions Patient Problems: Pelvic fx Patient Data-Allergies,Ht & Wt Patient Allergies: Coded Allergies: Iodinated Contrast Media (Verified Allergy, Unknown, 09/23/22) Penicillins (Verified Allergy, Unknown, 09/23/22) hydrochlorothiazide (Verified Allergy, Unknown, 09/24/22) hydrocodone (Verified Allergy, Unknown, 09/23/22) hydroxyzine (Verified Allergy, Unknown, 09/23/22) lisinopril (Verified Allergy, Unknown, 09/23/22) oxycodone (Verified Allergy, Unknown, 09/23/22) tramadol (Verified Allergy, Unknown, 09/23/22) Home Health Need/Face to Face Date of Face to Face: Sep 30, 2022 Clinical Findings: Generalized weakness and fatigue, Instability, Muscle weakness, Pain with ambulation I have seen Pt [id number]: Yes Discharged To: Home Diagnosis/Conditions: Pelvic fx Patient is Homebound due to: [place] fall risk due to instabilty, Muscle weakness, Pain w/ambulation Homebound Status Due to the above stated illness, injury or surgical procedure (medical condition or diagnosis) and associated clinical findings, the patient is homebound because of his/her inability to leave home except with aid of a supportive device and/or person AND leaving the home requires a considerable and taxing effort or is medically contraindicated. Pt req the following assistanc: Walker Home Health Nursing Orders Home Health Services Order: Nursing Services, Battery Assembler-Evaluate & Treat, Physical Therapy-Evaluate & Treat Certify Stmt I certify that this patient is under my care and that I, a nurse practitioner or a physician; a speech language pathologist assistant working with me, had a face to face encounter that - meets the physician face to face encounter requirements with this patient as dated. TYREL FREIRE DO Sep 30, 2022 06:18
--- NOTE | 2022-09-30 06:19 | Discharge Summary ---
Diagnosis/Chief Complaint Date of Admission Sep 23, 2022 at 11:55 Date of Discharge Discharge Date: Sep 30, 2022 Discharge Diagnosis Assessment: Fracture of left Superior & inferior pubic ramus Left impacted sacral fracture HTN Hx Mitral valve prolapse Hx afib Multiple pain med allergies Constipation Plan: Pain control PT OT Home meds Constipation treatment 09/24/2022: BM+ Pain control 09/25/2022: No pain reported Checked meds and labs 09/26/2022: Monitor rash Pain control 09/27/2022: Bowel regimen to intensify 09/28/2022: Monitor closely 09/29/2022: DC tomorrow (1) Pelvic fracture Discharge Summary Discharge Physical Examination Allergies: Coded Allergies: Iodinated Contrast Media (Verified Allergy, Unknown, 09/23/22) Penicillins (Verified Allergy, Unknown, 09/23/22) hydrochlorothiazide (Verified Allergy, Unknown, 09/24/22) hydrocodone (Verified Allergy, Unknown, 09/23/22) hydroxyzine (Verified Allergy, Unknown, 09/23/22) lisinopril (Verified Allergy, Unknown, 09/23/22) oxycodone (Verified Allergy, Unknown, 09/23/22) tramadol (Verified Allergy, Unknown, 09/23/22) Vitals & I&Os Vital Signs Date Time Temp Pulse Resp B/P (MAP) Pulse Ox O2 Delivery O2 Flow Rate FiO2 09/30/22 15:49 37.3 81 16 145/89 95 Room Air General Appearance: Alert, Oriented X3, Cooperative Respiratory: Clear to Auscultation Cardiovascular: Regular Rate Psych/Mental Status: Mental Status NL Hospital Course Was the Problem List Reviewed?: Yes Hospital course was uneventful after he was admitted for pelvic fracture and in need of pain control and bowel regimen and aggressive therapy to return to baseline function and live alone. Labs remained stable and no events occurred during stay so he was DC in improved condition and counseled to stop taking meth. Labs (last 24 hrs) Laboratory Tests 09/24/22 05:51: White Blood Count 5.4, Red Blood Count 3.71L, Hemoglobin 11.8L, Hematocrit 35L, Mean Corpuscular Volume 95, Mean Corpuscular Hemoglobin 32, Mean Corpuscular Hemoglobin Concent 34, Red Cell Distribution Width 13.3, Platelet Count 244, Mean Platelet Volume 8.9L, Immature Granulocyte % (Auto) 0, Neutrophils (%) (Auto) 45, Lymphocytes (%) (Auto) 37, Monocytes (%) (Auto) 11, Eosinophils (%) (Auto) 7, Basophils (%) (Auto) 1, Neutrophils # (Auto) 2.4, Lymphocytes # (Auto) 2.0, Monocytes # (Auto) 0.6, Eosinophils # (Auto) 0.4H, Basophils # (Auto) 0.1, Immature Granulocyte # (Auto) 0.0, Sodium Level 141, Potassium Level 3.9, Chloride Level 109H, Carbon Dioxide Level 23, Anion Gap 9, Blood Urea Nitrogen 14, Creatinine 0.77, Estimat Glomerular Filtration Rate 99, BUN/Creatinine Ratio 18, Glucose Level 93, Calcium Level 8.6, Corrected Calcium 9.3, Total Bilirubin 0.6, Aspartate Amino Transf (AST/SGOT) 20, Alanine Aminotransferase (ALT/SGPT) 13, Alkaline Phosphatase 60, Total Protein 5.8L, Albumin 3.1L 09/27/22 05:54: White Blood Count 5.7, Red Blood Count 3.86L, Hemoglobin 12.2L, Hematocrit 36L, Mean Corpuscular Volume 94, Mean Corpuscular Hemoglobin 32, Mean Corpuscular Hemoglobin Concent 34, Red Cell Distribution Width 12.8, Platelet Count 303, Mean Platelet Volume 8.9L, Sodium Level 139, Potassium Level 4.3, Chloride Level 105, Carbon Dioxide Level 24, Anion Gap 10, Blood Urea Nitrogen 13, Creatinine 0.85, Estimat Glomerular Filtration Rate 96, BUN/Creatinine Ratio 15, Glucose Level 99, Calcium Level 8.9, Corrected Calcium 9.4, Total Bilirubin 0.6, Aspartate Amino Transf (AST/SGOT) 23, Alanine Aminotransferase (ALT/SGPT) 20, Alkaline Phosphatase 73, Total Protein 6.4, Albumin 3.4 Pending Labs Laboratory Tests 09/24/22 05:51: White Blood Count 5.4, Red Blood Count 3.71, Hemoglobin 11.8, Hematocrit 35, Mean Corpuscular Volume 95, Mean Corpuscular Hemoglobin 32, Mean Corpuscular Hemoglobin Concent 34, Red Cell Distribution Width 13.3, Platelet Count 244, Mean Platelet Volume 8.9, Immature Granulocyte % (Auto) 0, Neutrophils (%) (Auto) 45, Lymphocytes (%) (Auto) 37, Monocytes (%) (Auto) 11, Eosinophils (%) (Auto) 7, Basophils (%) (Auto) 1, Neutrophils # (Auto) 2.4, Lymphocytes # (Auto) 2.0, Monocytes # (Auto) 0.6, Eosinophils # (Auto) 0.4, Basophils # (Auto) 0.1, Immature Granulocyte # (Auto) 0.0, Sodium Level 141, Potassium Level 3.9, Chloride Level 109, Carbon Dioxide Level 23, Anion Gap 9, Blood Urea Nitrogen 14, Creatinine 0.77, Estimat Glomerular Filtration Rate 99, BUN/Creatinine Ratio 18, Glucose Level 93, Calcium Level 8.6, Corrected Calcium 9.3, Total Bilirubin 0.6, Aspartate Amino Transf (AST/SGOT) 20, Alanine Aminotransferase (ALT/SGPT) 13, Alkaline Phosphatase 60, Total Protein 5.8, Albumin 3.1 09/27/22 05:54: White Blood Count 5.7, Red Blood Count 3.86, Hemoglobin 12.2, Hematocrit 36, Mean Corpuscular Volume 94, Mean Corpuscular Hemoglobin 32, Mean Corpuscular Hemoglobin Concent 34, Red Cell Distribution Width 12.8, Platelet Count 303, Mean Platelet Volume 8.9, Sodium Level 139, Potassium Level 4.3, Chloride Level 105, Carbon Dioxide Level 24, Anion Gap 10, Blood Urea Nitrogen 13, Creatinine 0.85, Estimat Glomerular Filtration Rate 96, BUN/Creatinine Ratio 15, Glucose Level 99, Calcium Level 8.9, Corrected Calcium 9.4, Total Bilirubin 0.6, Aspartate Amino Transf (AST/SGOT) 23, Alanine Aminotransferase (ALT/SGPT) 20, Alkaline Phosphatase 73, Total Protein 6.4, Albumin 3.4 Discharge Home Medications: Active Scripts Active Nystatin 100,000 Unit/Gram Cream..g. 0 Gm TP TID three times daily Lotrimin AF (Miconazole Nitrate) 2 % Powder 0 Gm TOP BID twice daily Stool Softener-Laxative Tablet (Sennosides/Docusate Sodium) 8.6 Mg-50 Mg Tablet 1 Ea PO BID Acetaminophen 325 Mg Tablet 650 Mg PO Q6H PRN Morphine Sulfate IR Tablet (Morphine Sulfate) 15 Mg Tablet 15 Mg PO Q6H PRN Morphine Sulfate ER (Morphine Sulfate) 30 Mg Tablet.er 30 Mg PO Q12HR Children's Aspirin (Aspirin) 81 Mg Tab.chew 81 Mg PO DAILY Banophen (Diphenhydramine HCl) 25 Mg Tablet 25 Mg PO Q4HR PRN Ibuprofen 600 Mg Tablet 600 Mg PO Q6H PRN Reported Verapamil Sr (Verapamil HCl) 180 Mg Cap24h.pel 180 Mg PO BID WITH MEALS Instructions to patient/family Please see electronic discharge instructions given to patient. Diagnosis/Problems Diagnosis/Problems (1) Pelvic fracture TYREL FREIRE DO Sep 30, 2022 06:19
[2022-09-30 07:34] VITALS: BP 145/89
[2022-09-30] MEDS: NICOTINE 21 MG (NICODERM) PATCH TD SCH ×2 (07:59→08:14)
[2022-09-30] MEDS: DOCUSATE SODIUM 100 MG (COLACE) CAP PO SCH (08:00)
[2022-09-30] MEDS: VERAPAMIL SR 180 MG (CALAN SR) TAB PO SCH (08:00)
[2022-09-30] MEDS: ASPIRIN 81 MG CHEW (CHILDREN'S ASA) PO SCH (08:00)
[2022-09-30] MEDS: morphine ER 30 MG (MS CONTIN) TAB PO SCH (08:01)
[2022-09-30] MEDS: MICONAZOLE 2% POWDER (DESENEX AF) 90 GM TOP SCH (08:02)
[2022-09-30] MEDS: polyethylene glycoL POWDER 17 GM (MIRALAX) PACK PO SCH (08:13)
[2022-09-30] MEDS: SENNA W/DOCUSATE (SENOKOT S) TABLET PO SCH (08:13)
[2022-09-30] MEDS: NICOTINE PATCH REMOVAL TP SCH (08:14)
[2022-09-30] MEDS: NYSTATIN CREAM (MYCOSTATIN) 30 GM TUBE TP SCH (09:00)
[2022-09-30] MEDS: ALPRAZolam 0.25 MG (XANAX) TAB PO PRN (11:08)
[2022-09-30 15:49] VITALS: BP 145/89
--- NOTE | 2022-10-01 13:44 | Therapy Team Discharge Summary ---
Therapy Discharge Summary Discharge Recommendations Date of Discharge Sep 30, 2022 at 13:00 Physical Therapy Roll Left to Right (QC): 6 Sit to Lying (QC): 6 Lying to Sitting/Side of Bed(Q: 6 Sit to Stand (QC): 6 Chair/Hcf-la-Reckw Xfer(QC): 6 Toilet Transfer (QC): 5 Car Transfer (QC): 6 Does the Patient Walk: Yes Mode of Locomotion: Walk Anticipated Mode of Locomotion: Walk Walk 10 feet (QC): 6 Walk 50 ft with 2 Turns(QC): 6 Walk 150 ft (QC): 6 Walking 10ft on uneven surface: 6 Distance: 200' Gait Assistive Device: FWW Does the Pt Use a Wheelchair: No Wheel 50 ft with 2 turns (QC): 9 Wheel 150 ft (QC): 9 #of Steps: 4 1 Step (curb) (QC): 6 4 Steps (QC): 6 12 Steps (QC): 07 Walking Assistive Device: Walker Balance Sitting Static: Good Balance Sitting Dynamic: Fair Balance-Standing Static: Good Picking up an Object (QC): 6 Occupational Therapy Pt admitted to [facility] s/p pelvic and sacral fxs. At [facility], pt was independent with ADLs and functional mobility without AD. Upon initial evaluation, pt was independent with eating, required SBA showering and footwear, CGA showering, LE dressing and toileting and set up with UE dressing. OT tx focused on increasing BUE strength and activity tolerance, and increasing safety and independence with ADLS and functional mobility. Pt made good progress, attaining IND level with all LTGs. Pt discharged home, d/c from OT. Decreased Activ Tolerance, Decreased UE Strength, Impaired I ADL's Eating (QC): 6 Oral Hygiene (QC): 6 Shower/Bathe Self (QC): 6 Upper Body Dressing (QC): 6 Lower Body Dressing (QC): 6 On/Off Footwear (QC): 6 Toileting Hygiene (QC): 6 PT Fpc Goals Drawer Liner Goals PT Fpc Goals Time Frame: Oct 14, 2022 Roll Left to Right (QC): 6 Sit to Lying (QC): 6 Lying-Sitting on Side/Bed(QC): 6 Sit to Stand (QC): 6 Chair/Lyz-gf-Truow Xfer(QC): 6 (with FWW) Toilet/Commode Transfer (QC): 6 Car Transfer (QC): 5 Does the Patient Walk: Yes Walk 10 feet (QC): 6 (with FWW) Walk 10ft-Uneven Surface(QC): 6 (with FWW) Walk 50ft with 2 Turns (QC): 6 (with FWW) Walk 150 ft (QC): 6 (with FWW) Does the Pt use WC or Scooter?: No Wheel 50 feet with 2 turns (QC: 9 Type: N/A Wheel 150 feet: 9 Type: N/A 1 Step (curb) (QC): 6 (with FWW) 4 Steps (QC): 6 (with (B) rails) 12 Steps (QC): 5 (with (B) rails) Picking up an Object (QC): 6 (with international relations teacher) OT Fpc Goals Drawer Liner Goals Time Frame: Oct 15, 2022 Acute change in mental status: 0 Inattention: 0 Disorganized thinkin Altered level of consciousness: 0 Eating (QC): 6 (met) Oral Hygiene (QC): 6 (met) Toileting Hygiene (QC): 6 (met) Shower/Bathe Self (QC): 6 (met) Upper Body Dressing (QC): 6 (met) Lower Body Dressing (QC): 6 (met) On/Off Footwear (QC): 6 (met) Additional Goals: 1-Demonstrate ADL Tasks, 2-Verbalize Understanding, 3- ImproveStrength/Sivan 1=Demonstrate adherence to instructed precautions during ADL tasks. 2=Patient will verbalize/demonstrate understanding of assistive devices/modifications for ADL. 3=Patient will improve strength/tolerance for activity to enable patient to perform ADL's. HERMINIO DE JESUS OT Oct 01, 2022 13:44
== END 2022-09-30 13:00 | disposition home health service (06) | DRG 561 ==
PROVIDERS: ADMIT Internal Medicine; ATTEND Internal Medicine
DX: S32.592D Other specified fracture of left pubis, subsequent encounter for fracture with routine healing (principal); S32.10XD Unspecified fracture of sacrum, subsequent encounter for fracture with routine healing; W08.XXXD Fall from other furniture, subsequent encounter; I10 Essential (primary) hypertension; I34.1 Nonrheumatic mitral (valve) prolapse; I48.91 Unspecified atrial fibrillation; K59.00 Constipation, unspecified; F15.90 Other stimulant use, unspecified, uncomplicated; R21 Rash and other nonspecific skin eruption; F17.220 Nicotine dependence, chewing tobacco, uncomplicated; Z88.5 Allergy status to narcotic agent; Z88.0 Allergy status to penicillin; Z79.899 Other long term (current) drug therapy; Z28.310 Unvaccinated for COVID-19
CPT/HCPCS: 36415; 80053; 85025; 85027